=== PATIENT | male | born 1950 | race Caucasian/White ===

== ENCOUNTER → 2017-12-29 08:28 | Outpatient (CLI) | payer MEDICARE, SELFPAY ==
[2017-12-29 09:00] LABS: Add Manual Diff / Slide Review NO; Basophils Percent Auto 0.2 % (0-2); Eosinophils Percent Auto 1.9 % (2-4); Hematocrit 43.1 % (41-53); Lymphocytes Percent Auto 29.2 % (25-40); Mean Corpuscular HGB Conc 34.7 % (30-36); Monocytes Percent Auto 7.2 % (3-14); Neutrophils Absolute Auto 3900 /uL (3000-5900); Neutrophils Percent Auto 61.5 % (50-75); Platelet Count 179 X10^3/uL (150-400); Red Blood Cell Count 4.54 X10^6/uL (4.5-5.9); Red Cell Distribution Width 13.3 % (11.6-14.8); White Blood Cell Count 6.3 X10^3/uL (4.5-11.0)
[2017-12-29 09:31] LABS: Alanine Aminotransferase 26 IU/L (21-72); Albumin 4.2 g/dL (3.5-5.0); Albumin Globulin Ratio 1.8 (1.0-2.8); Alkaline Phosphatase 60 U/L (38-126); Aspartate Aminotransferase 20 IU/L (17-59); BUN Creatinine Ratio 19.1 (6-22); Bilirubin Total 0.5 mg/dL (0.2-1.3); Blood Urea Nitrogen 21 mg/dL (9-20); Calcium 9.4 mg/dL (8.4-10.2); Carbon Dioxide 30 mmol/L (22-32); Chloride 100 mmol/L (98-107); Cholesterol 178 mg/dL (140-199); Estimated Glomerular Filt Rate > 60.0 mL/min (>60); Globulin 2.3 g/dL (1.7-4.1); Glucose 115 mg/dL (80-110); HDL Cholesterol 52 mg/dL (40-60); HEMOLYSIS < 15 (0-50); LDL Cholesterol Calculated 76 mg/dL (<100); Potassium 4.2 mmol/L (3.4-5.1); Sodium 140 mmol/L (137-145); Total Protein 6.5 g/dL (6.3-8.2); Triglycerides 249 mg/dL (35-150)
[2017-12-29 10:01] LABS: Prostate Specific Antigen 0.642 ng/mL (0.10-4.00)
== END ==
PROVIDERS: PCP Family Medicine; Visit Provider Family Medicine
DX: I10 Essential (primary) hypertension (principal); E78.1 Pure hyperglyceridemia; Z12.5 Encounter for screening for malignant neoplasm of prostate
CPT/HCPCS: 36415; 80053; 80061; 84153; 85025

== ENCOUNTER → 2018-03-12 09:09 | Outpatient (CLI) | payer MEDICARE, SELFPAY ==
--- NOTE | 2018-03-12 09:10 | DI.US.S_ITS ---
PROCEDURE: US SCROTUM INDICATIONS: HYDROCELE TECHNIQUE: Real-time scanning was performed of the scrotum and testicles, with image documentation. Color and pulse Doppler interrogation was performed of both testicles. COMPARISON: [facility] [place], [place], KIDNEY/ URETER/BLADDER, 12/26/2011, 11:58. FINDINGS: Right: Testicle is normal in size at 4.9 x 2.8 x 3.7 cm, and homogenous in echotexture. Epididymis is normal in overall size and morphology. No varicoceles. There is a septated right-sided scrotal fluid collection that measures approximately 6 x 12.6 x 0.1 cm. Overlying scrotal skin is normal in thickness. Left: Testicle is normal in size at 4.3 x 3.4 x 3.3 cm, and homogeneous in echotexture. The left epididymis is not well-seen. There is a left-sided septated scrotal fluid collection seen that measures 6.3 x 3 x 2.8 cm No varicoceles. Overlying scrotal skin is normal in thickness. Doppler: Color and pulse Doppler demonstrate normal and symmetric arterial flow in both testicles. IMPRESSION: Bilateral large septated scrotal fluid collections are seen, which may represent spermatoceles or large septated hydroceles. On the CT from 2011, scrotal fluid collections can be seen. Dictated by: Joey Álvarez M.D. on 03/12/2018 at 9:11 Approved by: Joey Álvarez M.D. on 03/12/2018 at 9:18
== END ==
PROVIDERS: PCP Family Medicine; Visit Provider Family Medicine
DX: Z12.5 Encounter for screening for malignant neoplasm of prostate (principal); N43.3 Hydrocele, unspecified
CPT/HCPCS: 76870

== ENCOUNTER → 2019-01-06 08:37 | Outpatient (CLI) | payer MEDICARE, SELFPAY ==
[2019-01-06 09:21] LABS: Add Manual Diff / Slide Review NO; Basophils Absolute Auto 0 /uL (0-100); Basophils Percent Auto 0.4 % (0-2); Eosinophils Absolute Auto 200 /uL (0-450); Eosinophils Percent Auto 3.2 % (2-4); Hematocrit 44.5 % (41-53); Hemoglobin 15.4 g/dL (13.5-17.5); Lymphocytes Absolute Auto 1500 /uL (1100-4500); Lymphocytes Percent Auto 26.6 % (25-40); Mean Corpuscular HGB Conc 34.7 % (30-36); Mean Corpuscular Hemoglobin 33.3 PG (26-34); Mean Corpuscular Volume 95.8 fL (80-100); Monocytes Absolute Auto 400 /uL (0-900); Monocytes Percent Auto 7.8 % (3-14); Neutrophils Absolute Auto 3500 /uL (1500-7000); Platelet Count 198 X10^3/uL (150-400); Red Blood Cell Count 4.64 X10^6/uL (4.5-5.9); Red Cell Distribution Width 13.5 % (11.6-14.8); White Blood Cell Count 5.7 X10^3/uL (4.5-11.0)
[2019-01-06 09:36] LABS: Alanine Aminotransferase 21 IU/L (21-72); Albumin 4.6 g/dL (3.5-5.0); Albumin Globulin Ratio 1.9 (1.0-2.8); Alkaline Phosphatase 91 U/L (38-126); Aspartate Aminotransferase 24 IU/L (17-59); BUN Creatinine Ratio 25.7 (6-22); Bilirubin Total 0.4 mg/dL (0.2-1.3); Blood Urea Nitrogen 18 mg/dL (9-20); Calcium 9.7 mg/dL (8.4-10.2); Carbon Dioxide 27 mmol/L (22-32); Chloride 100 mmol/L (98-107); Cholesterol 192 mg/dL (140-199); Estimated Glomerular Filt Rate > 60.0 mL/min (>60); Globulin 2.4 g/dL (1.7-4.1); Glucose 135 mg/dL (80-110); HDL Cholesterol 57 mg/dL (40-60); HEMOLYSIS < 15 (0-50); LDL Cholesterol Calculated 65 mg/dL (<100); Potassium 4.3 mmol/L (3.4-5.1); Sodium 138 mmol/L (137-145); Triglycerides 351 mg/dL (35-150)
[2019-01-06 10:03] LABS: Prostate Specific Antigen Scrn 1.38 ng/mL (0.1-4.0)
== END ==
PROVIDERS: PCP Family Medicine; Visit Provider Family Medicine
DX: Z12.5 Encounter for screening for malignant neoplasm of prostate (principal); Z79.899 Other long term (current) drug therapy; E78.1 Pure hyperglyceridemia
CPT/HCPCS: 36415; 80053; 80061; 85025; G0103

== ENCOUNTER → 2019-05-10 11:43 | Outpatient (CLI) | payer MEDICARE, SELFPAY ==
[2019-05-10 12:28] LABS: Add Manual Diff / Slide Review NO; Basophils Absolute Auto 0 /uL (0-100); Basophils Percent Auto 0.2 % (0-2); Eosinophils Absolute Auto 100 /uL (0-450); Eosinophils Percent Auto 0.8 % (2-4); Hematocrit 44.4 % (41-53); Hemoglobin 15.4 g/dL (13.5-17.5); Lymphocytes Absolute Auto 1500 /uL (1100-4500); Mean Corpuscular HGB Conc 34.6 % (30-36); Mean Corpuscular Hemoglobin 33.5 PG (26-34); Mean Corpuscular Volume 96.9 fL (80-100); Monocytes Absolute Auto 500 /uL (0-900); Monocytes Percent Auto 4.5 % (3-14); Neutrophils Absolute Auto 9300 /uL (1500-7000); Neutrophils Percent Auto 81.5 % (50-75); Platelet Count 190 X10^3/uL (150-400); Red Blood Cell Count 4.59 X10^6/uL (4.5-5.9); Red Cell Distribution Width 13.5 % (11.6-14.8); White Blood Cell Count 11.5 X10^3/uL (4.5-11.0)
[2019-05-10 12:37] LABS: Alanine Aminotransferase 18 IU/L (<50); Albumin 4.5 g/dL (3.5-5.0); Albumin Globulin Ratio 1.7 (1.0-2.8); Alkaline Phosphatase 85 U/L (38-126); Aspartate Aminotransferase 34 IU/L (17-59); BUN Creatinine Ratio 31.4 (6-22); Bilirubin Total 0.6 mg/dL (0.2-1.3); Blood Urea Nitrogen 22 mg/dL (9-20); Calcium 9.5 mg/dL (8.4-10.2); Carbon Dioxide 30 mmol/L (22-32); Chloride 101 mmol/L (98-107); Estimated Glomerular Filt Rate > 60.0 mL/min (>60); Globulin 2.6 g/dL (1.7-4.1); Glucose 123 mg/dL (80-110); HEMOLYSIS 19 (0-50); Lipase 398 U/L (23-300); Potassium 4.9 mmol/L (3.4-5.1); Sodium 137 mmol/L (137-145); Total Protein 7.1 g/dL (6.3-8.2)
== END ==
PROVIDERS: Family Provider Family Medicine; PCP Family Medicine; Visit Provider Nurse Practitioner
DX: R10.11 Right upper quadrant pain (principal)
CPT/HCPCS: 36415; 80053; 83690; 85025

== ENCOUNTER → 2019-05-11 09:24 | Outpatient (CLI) | payer MEDICARE, SELFPAY ==
--- NOTE | 2019-05-11 09:29 | DI.US.S_ITS ---
PROCEDURE: US ABDOMEN COMPLETE INDICATIONS: RIGHT UPPER QUADRANT PAIN TECHNIQUE: Real-time scanning was performed of the abdominal and retroperitoneal organs, with image documentation. COMPARISON: None. FINDINGS: Liver: Liver is normal in size and homogeneous in echotexture, moderately fatty infiltrated. Gallbladder: Appears normal Biliary ducts: Intrahepatic bile ducts are non-dilated. Extrahepatic bile duct caliber measures 8.0 mm. Normal is 6-7 mm or less in diameter, or 10 mm or less post-cholecystectomy. Pancreas: Visualized portions of the pancreas are sonographically normal. Spleen: Spleen is normal in size and homogeneous in echotexture. Kidneys: Kidneys are normal in size and echotexture. Right kidney measures 13.8 cm long; left kidney measures 13.1 cm long. No hydronephrosis or nephrolithiasis. No solid masses. Aorta: Visualized aorta is normal in caliber at less than 3 cm. Iliacs: Proximal common iliac arteries are normal in caliber at less than 2.5 cm. IVC: Intrahepatic inferior vena cava is patent. Miscellaneous: No free abdominal fluid. IMPRESSION: No acute disease, source of current right upper quadrant pain is not identified. Incidental note is made of moderate fatty infiltration within the liver which conceivably could represent a source of tenderness. No gallstones or biliary distention found. Dictated by: Glenroy Gallardo M.D. on 05/11/2019 at 11:30 Approved by: Glenroy Gallardo M.D. on 05/11/2019 at 11:31
== END ==
PROVIDERS: Family Provider Family Medicine; PCP Family Medicine; Visit Provider Nurse Practitioner
DX: R10.11 Right upper quadrant pain (principal)
CPT/HCPCS: 76700

== ENCOUNTER 2020-05-11 13:24 | Inpatient (IN) | payer MEDICARE, OTHER, SELFPAY ==
[2020-05-11] VITALS (29 sets, daily range): BP systolic 140–217; BP diastolic 72–116; PULSE 57–93; RESP 16–24; TEMP 36.4–36.7; O2SAT 91–99; BMI 24.3
--- NOTE | 2020-05-11 13:52 | ED.ABDPAIN ---
HPI - Abdominal Pain <PIYUSH Edmondsno - Last Filed: 05/11/20 18:07> General Chief Complaint: Abdominal Pain Stated Complaint: sharp pain in tummy shakey Time Seen by Provider: 05/11/20 13:40 Source: patient Mode of arrival: Ambulatory Limitations: no limitations History of Present Illness HPI narrative: The patient is a 69-year-old male current smoker with history of hypertension and pancreatitis who presents with a chief complaint of epigastric pain. He notes that he has a history of pancreatitis for which he was in an ?induced coma in [place] about 30 years ago. He states that they did not know why he developed pancreatitis. He states that he has transient epigastric pain right upper quadrant pain, this occurred about the same time last year. He states he initially cut out all alcohol after his pancreatitis flare, but is currently drinking about 5 oz of vodka daily. He denies any fevers, complains of transient muscle aches and chills. Denies any known coronavirus exposure was tested last week for his work negative. He denies any abdominal surgical history. Related Data Previous Rx's Medication Instructions Recorded gemfibrozil 600 mg tablet 600 mg PO BIDAC #60 tab 12/12/17 oxycodone 5 mg tablet 5 mg PO TID PRN #90 tab 02/11/18 carisoprodol 350 mg tablet 350 mg PO BID PRN #60 tab 02/12/18 oxycodone 5 mg tablet 5 mg PO TID PRN #90 tab 02/12/18 oxycodone 5 mg tablet 5 mg PO TID PRN #90 tab 02/12/18 atenolol 100 mg tablet 100 mg PO Q DAY #90 tab 08/14/18 Allergies Allergy/AdvReac Type Severity Reaction Status Date / Time No Known Drug Allergies Allergy Verified 05/11/20 13:43 Review of Systems <PIYUSH Edmondson - Last Filed: 05/11/20 18:07> Review of Systems Narrative: GENERAL: Denies chills, fatigue, malaise, fever, sweats. HEENT: Denies sinus pain, ear pain, sore throat, difficulty swallowing, dizziness. RESPIRATORY: Denies dyspnea, cough, wheezing, hemoptysis, sputum. CARDIOVASCULAR: Denies chest pain, palpitations, orthopnea, edema, GASTROINTESTINAL: Denies nausea, vomiting, abdominal pain, diarrhea, constipation, melena. : Denies dysuria, frequency, incontinence, hematuria, urinary retention. MUSCULOSKELETAL: denies weakness, joint pain, or bony pain SKIN: Denies rash, skin lesions, or other NEUROLOGIC: Denies weakness, headache, numbness, change in speech, confusion, seizures, incoordination. PSYCHIATRIC: No concerning psychosocial issues. 12 point review of systems is negative except for those stated above Patient History <PIYUSH Edmondson - Last Filed: 05/11/20 18:07> Medical History (Updated 05/11/20 @ 17:26 by PIYUSH Edmondson) Chronic back pain Chronic low back pain (Unknown) Essential hypertension (04/07/15) Hydrocele of testis (Unknown) Hyperlipemia (Unknown) Hypertension (Unknown) Kidney stones (Unknown) Left knee pain Pancreatitis (1990) Peripheral artery disease (Unknown) Pure hyperglyceridemia (04/07/15) Uncomplicated opioid dependence Uncomplicated opioid dependence (05/22/17) Surgical History History of lithotripsy Hx of tonsillectomy (Unknown) Family History (Updated 05/11/20 @ 18:18 by Rafael Bryant DO) Father Hyperlipidemia Social History Smoking Status: Current every day smoker Tobacco: How many years used: 30 second hand exposure: No alcohol intake: current (wine with dinner, but not every day.) substance use type: does not use Smoking Status: Current every day smoker alcohol intake frequency: 0-2 drinks per day Exam <PIYUSH Edmondson - Last Filed: 05/11/20 18:07> Narrative Exam Narrative: GENERAL: This is a well-nourished, well-developed patient, in no acute distress HEAD: Atraumatic. Normocephalic. No temporal or scalp tenderness. EYES: Pupils equal round and reactive. Extraocular motions intact. No scleral icterus. No injection or drainage. ENT: Nose without bleeding, purulent drainage or septal hematoma. Throat without erythema, tonsillar hypertrophy or exudate. Uvula midline. Airway patent. NECK: Trachea midline. No JVD or lymphadenopathy. Supple, nontender, no meningeal signs. CARDIOVASCULAR: Regular rate and rhythm RESPIRATORY: Clear to auscultation. Breath sounds equal bilaterally. No wheezes, rales, or rhonchi. No cough. No increased respiratory effort. No accessory muscle use GASTROINTESTINAL: Abdomen soft, active bowel sounds all 4 quadrants, pain to palpation epigastric area, nondistended. No hepato-splenomegaly, or palpable masses. EXTREMITIES: No clubbing, cyanosis, or edema. No joint tenderness, effusion, or edema noted. BACK: Nontender without deformity or crepitance. No flank tenderness. NEURO: AOx3. SKIN: No rash or erythema on visible skin Initial Vital Signs Initial Vital Signs: Vital Signs Temperature 97.8 F 05/11/20 13:44 Pulse Rate 74 05/11/20 13:44 Respiratory Rate 18 05/11/20 13:44 Pulse Oximetry 99 05/11/20 13:44 <Anthony Durham DO - Last Filed: 05/11/20 18:26> Initial Vital Signs Initial Vital Signs: Vital Signs Temperature 97.8 F 05/11/20 13:44 Pulse Rate 74 05/11/20 13:44 Respiratory Rate 18 05/11/20 13:44 Pulse Oximetry 99 05/11/20 13:44 Scores <AMY Edmondson - Last Filed: 05/11/20 18:07> GCS Zoe coma scale eye opening: Spontaneous Zoe coma scale verbal response: Orientated Zoe coma scale motor response: Obey commands Zoe coma scale total score: 15 Course <AMY EdmondsonBC - Last Filed: 05/11/20 18:07> Orders Ordered: ED Orders 05/11/20 13:50 EKG-12 Lead Stat 05/11/20 14:02 Amylase Stat Complete Blood Count AUTO DIFF Stat Comprehensive Metabolic Panel Stat Lipase Stat Partial Thromboplastin Time Stat Prothrombin Time INR Stat Triglycerides Stat Troponin & CK Cardiac Panel Stat 05/11/20 14:37 CT abdomen pelvis w con Stat 05/11/20 16:07 Urine Microscopic Stat 05/11/20 16:14 COVID19 Stat 05/12/20 05:00 Basic Metabolic Panel DAILY Complete Blood Count AUTO DIFF DAILY Hemoglobin A1C% w Est Avg Glu Routine Hepatic (Liver) Panel DAILY Lipid Panel Routine Magnesium DAILY Phosphorous DAILY 05/13/20 05:00 Basic Metabolic Panel DAILY Complete Blood Count AUTO DIFF DAILY Hepatic (Liver) Panel DAILY Magnesium DAILY Phosphorous DAILY 05/14/20 05:00 Basic Metabolic Panel DAILY Complete Blood Count AUTO DIFF DAILY Hepatic (Liver) Panel DAILY Magnesium DAILY Phosphorous DAILY Hydromorphone HCl (Hydromorphone 1 Mg Inj) 1 mg IV Q3H PRN PRN Reason: Pain, Moderate (4-6) INSULIN DRIP PREMIX (Myxredlin Drip Premix) 100 unit in 100 mls @ 8.57 mls/hr IV TITRATE BERHANE; Protocol Dextrose (D10w) 1,000 mls @ 100 mls/hr IV CONT BERHANE Discontinued Medications Atenolol (Atenolol 50 Mg Tablet) 100 mg PO NOW ONE Stop: 05/11/20 15:56 Last Admin: 05/11/20 16:05 Dose: 100 mg Documented by: MANFRED Hydromorphone HCl (Hydromorphone 1 Mg Inj) 1 mg IV NOW ONE Stop: 05/11/20 14:38 Last Admin: 05/11/20 14:46 Dose: 1 mg Documented by: MANFRED Hydromorphone HCl (Hydromorphone 1 Mg Inj) 1 mg IV NOW ONE Stop: 05/11/20 16:19 Last Admin: 05/11/20 16:23 Dose: 1 mg Documented by: MANFRED Sodium Chloride (Normal Saline 0.9%) 1,000 mls @ 1,000 mls/hr IV BOLUS ONE Stop: 05/11/20 14:49 Last Infusion: 05/11/20 15:21 Dose: 0 mls/hr Documented by: Admin: 05/11/20 14:01 Dose: 1,000 mls/hr Documented by: RONY Sodium Chloride (Normal Saline 0.9%) 1,000 mls @ 1,000 mls/hr IV BOLUS ONE Stop: 05/11/20 15:47 Last Infusion: 05/11/20 16:56 Dose: 0 mls/hr Documented by: Admin: 05/11/20 15:22 Dose: 1,000 mls/hr Documented by: MANFRED Morphine Sulfate (Morphine 4 Mg/Ml Inj) 4 mg IV NOW ONE Stop: 05/11/20 13:51 Last Admin: 05/11/20 14:02 Dose: 4 mg Documented by: RONY Ondansetron HCl (Ondansetron 4 Mg/2 Ml Inj) 4 mg IV NOW ONE Stop: 05/11/20 13:51 Last Admin: 05/11/20 14:02 Dose: 4 mg Documented by: SCANAPO Vital Signs Vital signs: Vital Signs - 8 hr 05/11/20 13:44 05/11/20 14:16 05/11/20 14:30 Temperature 97.8 F Pulse Rate 74 82 83 Respiratory Rate 18 Blood Pressure Pulse Oximetry 99 97 97 05/11/20 14:31 05/11/20 15:00 05/11/20 15:01 Temperature Pulse Rate 77 84 91 H Respiratory Rate Blood Pressure 212/105 H 200/94 H Pulse Oximetry 97 96 96 05/11/20 15:19 05/11/20 15:29 05/11/20 15:30 Temperature Pulse Rate 87 86 84 Respiratory Rate Blood Pressure 214/116 H 207/100 H 214/98 H Pulse Oximetry 98 97 98 05/11/20 15:45 05/11/20 16:14 05/11/20 16:29 Temperature Pulse Rate 93 H Respiratory Rate Blood Pressure 217/94 H 191/101 H Pulse Oximetry 97 05/11/20 16:30 05/11/20 16:52 05/11/20 17:01 Temperature Pulse Rate Respiratory Rate Blood Pressure 190/89 H 188/81 H 171/75 H Pulse Oximetry <Anthony Durham, - Last Filed: 05/11/20 18:26> Orders Ordered: ED Orders 05/11/20 13:50 EKG-12 Lead Stat 05/11/20 14:02 Amylase Stat Complete Blood Count AUTO DIFF Stat Comprehensive Metabolic Panel Stat Lipase Stat Partial Thromboplastin Time Stat Prothrombin Time INR Stat Triglycerides Stat Troponin & CK Cardiac Panel Stat 05/11/20 14:37 CT abdomen pelvis w con Stat 05/11/20 16:07 Urine Microscopic Stat 05/11/20 16:14 COVID19 Stat 05/12/20 05:00 Basic Metabolic Panel DAILY Complete Blood Count AUTO DIFF DAILY Hemoglobin A1C% w Est Avg Glu Routine Hepatic (Liver) Panel DAILY Lipid Panel Routine Magnesium DAILY Phosphorous DAILY 05/13/20 05:00 Basic Metabolic Panel DAILY Complete Blood Count AUTO DIFF DAILY Hepatic (Liver) Panel DAILY Magnesium DAILY Phosphorous DAILY 05/14/20 05:00 Basic Metabolic Panel DAILY Complete Blood Count AUTO DIFF DAILY Hepatic (Liver) Panel DAILY Magnesium DAILY Phosphorous DAILY Hydromorphone HCl (Hydromorphone 1 Mg Inj) 1 mg IV Q3H PRN PRN Reason: Pain, Moderate (4-6) INSULIN DRIP PREMIX (Myxredlin Drip Premix) 100 unit in 100 mls @ 8.57 mls/hr IV TITRATE BERHANE; Protocol Dextrose (D10w) 1,000 mls @ 100 mls/hr IV CONT BERHANE Discontinued Medications Atenolol (Atenolol 50 Mg Tablet) 100 mg PO NOW ONE Stop: 05/11/20 15:56 Last Admin: 05/11/20 16:05 Dose: 100 mg Documented by: MANFRED Hydromorphone HCl (Hydromorphone 1 Mg Inj) 1 mg IV NOW ONE Stop: 05/11/20 14:38 Last Admin: 05/11/20 14:46 Dose: 1 mg Documented by: MANFRED Hydromorphone HCl (Hydromorphone 1 Mg Inj) 1 mg IV NOW ONE Stop: 05/11/20 16:19 Last Admin: 05/11/20 16:23 Dose: 1 mg Documented by: MANFRED Sodium Chloride (Normal Saline 0.9%) 1,000 mls @ 1,000 mls/hr IV BOLUS ONE Stop: 05/11/20 14:49 Last Infusion: 05/11/20 15:21 Dose: 0 mls/hr Documented by: Admin: 05/11/20 14:01 Dose: 1,000 mls/hr Documented by: RONY Sodium Chloride (Normal Saline 0.9%) 1,000 mls @ 1,000 mls/hr IV BOLUS ONE Stop: 05/11/20 15:47 Last Infusion: 05/11/20 16:56 Dose: 0 mls/hr Documented by: Admin: 05/11/20 15:22 Dose: 1,000 mls/hr Documented by: MANFRED Morphine Sulfate (Morphine 4 Mg/Ml Inj) 4 mg IV NOW ONE Stop: 05/11/20 13:51 Last Admin: 05/11/20 14:02 Dose: 4 mg Documented by: ROYN Ondansetron HCl (Ondansetron 4 Mg/2 Ml Inj) 4 mg IV NOW ONE Stop: 05/11/20 13:51 Last Admin: 05/11/20 14:02 Dose: 4 mg Documented by: SCANAPO Vital Signs Vital signs: Vital Signs - 8 hr 05/11/20 13:44 05/11/20 14:16 05/11/20 14:30 Temperature 97.8 F Pulse Rate 74 82 83 Respiratory Rate 18 Blood Pressure Pulse Oximetry 99 97 97 05/11/20 14:31 05/11/20 15:00 05/11/20 15:01 Temperature Pulse Rate 77 84 91 H Respiratory Rate Blood Pressure 212/105 H 200/94 H Pulse Oximetry 97 96 96 05/11/20 15:19 05/11/20 15:29 05/11/20 15:30 Temperature Pulse Rate 87 86 84 Respiratory Rate Blood Pressure 214/116 H 207/100 H 214/98 H Pulse Oximetry 98 97 98 05/11/20 15:45 05/11/20 16:14 05/11/20 16:29 Temperature Pulse Rate 93 H Respiratory Rate Blood Pressure 217/94 H 191/101 H Pulse Oximetry 97 05/11/20 16:30 05/11/20 16:52 05/11/20 17:01 Temperature Pulse Rate Respiratory Rate Blood Pressure 190/89 H 188/81 H 171/75 H Pulse Oximetry MDM - Abdominal Pain <MARK Edmondson- - Last Filed: 05/11/20 18:07> Differential Diagnosis Differential diagnosis: Likely abdominal pain, constipation, diverticulitis, gastroenteritis, pancreatitis and small bowel obstruction Lab Data Attestation: I reviewed the patient's lab results. Result diagrams: 05/11/20 14:02 05/11/20 14:02 Labs: Lab Results 05/11/20 05/11/20 05/11/20 Range/Units 14:02 14:02 14:02 WBC 9.6 (4.5-11.0) X10^3/uL RBC 4.78 (4.5-5.9) X10^6/uL Hgb 15.8 (13.5-17.5) g/dL Hct 45.9 (41-53) % MCV 96.0 (80-100) fL MCH 33.0 (26-34) PG MCHC 34.4 (30-36) % RDW 13.4 (11.6-14.8) % Plt Count 151 (150-400) X10^3/uL Neut % (Auto) 79.2 H (50-75) % Lymph % (Auto) 14.7 L (25-40) % [place] % (Auto) 4.6 (3-14) % Eos % (Auto) 1.3 L (2-4) % Baso % (Auto) 0.2 (0-2) % Neut # (Auto) 7600 H (0809-8422) /uL Lymph # (Auto) 1400 (8293-4365) /uL [place] # (Auto) 400 (0-900) /uL Eos # (Auto) 100 (0-450) /uL Baso # (Auto) 0 (0-100) /uL PT 10.9 (10.1-12.7) SECONDS INR 0.9 (0.9-1.3) APTT 31 (26.4-36.2) SECONDS Sodium 134 L (137-145) mmol/L Potassium 4.0 (3.4-5.1) mmol/L Chloride 104 (98-107) mmol/L Carbon Dioxide 25 (22-32) mmol/L BUN 16 (9-20) mg/dL Creatinine 0.53 L (0.66-1.25) mg/dL Estimated GFR > 60.0 (>60) mL/min BUN/Creatinine Ratio 30.2 H (6-22) Glucose 231 H (80-110) mg/dL Calcium 9.2 (8.4-10.2) mg/dL Total Bilirubin 0.5 (0.2-1.3) mg/dL AST 55 (17-59) IU/L ALT 26 (<50) IU/L Alkaline Phosphatase 113 (38-126) U/L Total Creatine Kinase (55-170) U/L CK-MB (CK-2) CK-MB (CK-2) Rel Index Troponin I (0.01-0.034) ng/mL Total Protein 6.9 (6.3-8.2) g/dL Albumin 4.1 (3.5-5.0) g/dL Globulin 2.8 (1.7-4.1) g/dL Albumin/Globulin Ratio 1.5 (1.0-2.8) Triglycerides (35-150) mg/dL Amylase 176 H (30-110) U/L Lipase 1866 H (23-300) U/L Urine RBC (0-5/HPF) Urine WBC (0-5/HPF) Ur Squamous Epith Cells (0-5/HPF) Urine Bacteria (None) Ur Culture Indicated? COVID-19 PCR (Negative) 05/11/20 05/11/20 05/11/20 Range/Units 14:02 14:02 16:07 WBC (4.5-11.0) X10^3/uL RBC (4.5-5.9) X10^6/uL Hgb (13.5-17.5) g/dL Hct (41-53) % MCV (80-100) fL MCH (26-34) PG MCHC (30-36) % RDW (11.6-14.8) % Plt Count (150-400) X10^3/uL Neut % (Auto) (50-75) % Lymph % (Auto) (25-40) % [place] % (Auto) (3-14) % Eos % (Auto) (2-4) % Baso % (Auto) (0-2) % Neut # (Auto) (4520-8384) /uL Lymph # (Auto) (5266-7489) /uL [place] # (Auto) (0-900) /uL Eos # (Auto) (0-450) /uL Baso # (Auto) (0-100) /uL PT (10.1-12.7) SECONDS INR (0.9-1.3) APTT (26.4-36.2) SECONDS Sodium (137-145) mmol/L Potassium (3.4-5.1) mmol/L Chloride (98-107) mmol/L Carbon Dioxide (22-32) mmol/L BUN (9-20) mg/dL Creatinine (0.66-1.25) mg/dL Estimated GFR (>60) mL/min BUN/Creatinine Ratio (6-22) Glucose (80-110) mg/dL Calcium (8.4-10.2) mg/dL Total Bilirubin (0.2-1.3) mg/dL AST (17-59) IU/L ALT (<50) IU/L Alkaline Phosphatase (38-126) U/L Total Creatine Kinase 32 L (55-170) U/L CK-MB (CK-2) TNP CK-MB (CK-2) Rel Index TNP Troponin I < 0.012 (0.01-0.034) ng/mL Total Protein (6.3-8.2) g/dL Albumin (3.5-5.0) g/dL Globulin (1.7-4.1) g/dL Albumin/Globulin Ratio (1.0-2.8) Triglycerides 1109 H (35-150) mg/dL Amylase (30-110) U/L Lipase (23-300) U/L Urine RBC 0-1/hpf (0-5/HPF) Urine WBC None seen (0-5/HPF) Ur Squamous Epith Cells None seen (0-5/HPF) Urine Bacteria None seen (None) Ur Culture Indicated? Cult not indicated COVID-19 PCR (Negative) 05/11/20 Range/Units 16:14 WBC (4.5-11.0) X10^3/uL RBC (4.5-5.9) X10^6/uL Hgb (13.5-17.5) g/dL Hct (41-53) % MCV (80-100) fL MCH (26-34) PG MCHC (30-36) % RDW (11.6-14.8) % Plt Count (150-400) X10^3/uL Neut % (Auto) (50-75) % Lymph % (Auto) (25-40) % [place] % (Auto) (3-14) % Eos % (Auto) (2-4) % Baso % (Auto) (0-2) % Neut # (Auto) (4911-8356) /uL Lymph # (Auto) (7015-8414) /uL [place] # (Auto) (0-900) /uL Eos # (Auto) (0-450) /uL Baso # (Auto) (0-100) /uL PT (10.1-12.7) SECONDS INR (0.9-1.3) APTT (26.4-36.2) SECONDS Sodium (137-145) mmol/L Potassium (3.4-5.1) mmol/L Chloride (98-107) mmol/L Carbon Dioxide (22-32) mmol/L BUN (9-20) mg/dL Creatinine (0.66-1.25) mg/dL Estimated GFR (>60) mL/min BUN/Creatinine Ratio (6-22) Glucose (80-110) mg/dL Calcium (8.4-10.2) mg/dL Total Bilirubin (0.2-1.3) mg/dL AST (17-59) IU/L ALT (<50) IU/L Alkaline Phosphatase (38-126) U/L Total Creatine Kinase (55-170) U/L CK-MB (CK-2) CK-MB (CK-2) Rel Index Troponin I (0.01-0.034) ng/mL Total Protein (6.3-8.2) g/dL Albumin (3.5-5.0) g/dL Globulin (1.7-4.1) g/dL Albumin/Globulin Ratio (1.0-2.8) Triglycerides (35-150) mg/dL Amylase (30-110) U/L Lipase (23-300) U/L Urine RBC (0-5/HPF) Urine WBC (0-5/HPF) Ur Squamous Epith Cells (0-5/HPF) Urine Bacteria (None) Ur Culture Indicated? COVID-19 PCR Negative (Negative) Point of care testing: Point of Care Testing Glucose POC 153 Urine Dip Bedside Urine Glucose Negative Bedside Urine Bilirubin - Negative Bedside Urine Ketone - Negative Urine Specific [place] 1.015 Bedside Urine Occult Blood + Bedside Urine pH 6.0 Bedside Urine Protein - Negative Bedside Urine Urobilinogen - Negative Bedside Urine Nitrite - Negative Bedside Urine Leukocytes - Negative Esterase Imaging Data CT scan - abdomen/pelvis: Radiologist's Impression: [facility] [place] [id number] Scan ReportSigned Patient: Ez Williamson#: [id number]: 9Acct:[id number]/Sex: 69 / MDate of Service: 05/11/20Loc: EDAccession Number: [id number] Procedure: CT abdomen pelvis w con Ordering Provider: Dayanna Arriaga- PROCEDURE: CT ABDOMEN PELVIS W CON INDICATIONS: abd pain, elevated lipase TECHNIQUE: After the administration of intravenous contrast, 5 mm thick sections acquired from the diaphragm to the symphysis. 5 mm coronal and sagittal reformats were acquired. For radiation dose reduction, the following was used: automated exposure control, adjustment of mA and/or kV according to patient size. COMPARISON: [facility], CT, KIDNEY/ URETER/BLADDER, 12/26/2011, 11:58. [facility], , US ABDOMEN COMPLETE, 05/11/2019, 10:03. FINDINGS: Image quality: Excellent. ABDOMEN: Lung bases: Lung bases are clear. Heart size is normal. Solid organs: Liver is normal in size and enhancement. Diffuse fatty liver infiltration is noted. Gallbladder wall is not thickened. Biliary system is non dilated. There is moderate inflammatory change seen surrounding the pancreas. The pancreatic duct is mildly dilated, measuring up to 5 mm. The pancreas enhances normally, without necrotic areas. No pancreatic pseudocysts are seen. Spleen is normal in size and enhancement. No adrenal nodules. Kidneys demonstrate normal size and enhancement, without hydronephrosis. The previously seen right-sided kidney stone is no longer seen. Peritoneum and bowel: Bowel loops demonstrate normal wall thickness and caliber. No free fluid or air. Nodes and vessels: No retroperitoneal or mesenteric adenopathy by size criteria. Aorta and inferior vena cava are normal in size. Advanced atherosclerotic calcification can be seen in the aorta, the iliac arteries, and the proximal aortic branches. Miscellaneous: No ventral hernias. PELVIS: Genitourinary: Bladder wall thickness is normal. There is a prominent right-sided hydrocele. Miscellaneous: No inguinal hernias or adenopathy. Bones: No suspicious bony lesions. A right iliac wing bone island can be seen, as on series 2, image 61 No vertebral body compression fractures. Mild levoconvex scoliotic curvature is noted. Age-appropriate bony degenerative changes are seen. IMPRESSION: Pancreatitis, without pancreatic necrosis or pseudocyst formation. The pancreatic duct is mildly dilated at 5 mm. No subhash biliary dilatation can be seen. Incidental note is made of: Fatty liver infiltration Advanced atherosclerotic calcification Levoconvex scoliotic curvature Stable right iliac wing bone island Prominent right-sided hydrocele Dictated by: Joey Álvarez M.D. on 05/11/2020 at 14:21 Approved by: Joey Álvarez M.D. on 05/11/2020 at 14:26 ECG Data Attestation: I personally reviewed and interpreted this ECG as follows: Interpretation: Sinus rhythm. Ventricular rate 73. P.r. interval 150. QRS 90. MDM Narrative Medical decision making narrative: The patient is a 69-year-old male with history of pancreatitis who presents with a chief complaint of abdominal pain that has been ongoing since yesterday. He does drink 5 oz of hard alcohol per day. His lipase is elevated at almost 1900, amylase elevated as well. CT was obtained which is pancreatitis with no gallbladder wall thickening or biliary distention. The patient does require multiple doses of IV pain medication, I spoke with Dr. Bryant who accepted the patient for admission for pancreatitis management. Per his request, triglyceride level was added to his labs which was found to be elevated. Subsequently he ordered insulin drip the patient the patient will be admitted to the intensive care unit at this facility. His coronavirus is negative, patient states understanding. He has been hemodynamically stable throughout his stay in the ER. <Anthony Durham, DO - Last Filed: 05/11/20 18:26> Lab Data Labs: Lab Results 05/11/20 05/11/20 05/11/20 Range/Units 14:02 14:02 14:02 WBC 9.6 (4.5-11.0) X10^3/uL RBC 4.78 (4.5-5.9) X10^6/uL Hgb 15.8 (13.5-17.5) g/dL Hct 45.9 (41-53) % MCV 96.0 (80-100) fL MCH 33.0 (26-34) PG MCHC 34.4 (30-36) % RDW 13.4 (11.6-14.8) % Plt Count 151 (150-400) X10^3/uL Neut % (Auto) 79.2 H (50-75) % Lymph % (Auto) 14.7 L (25-40) % [place] % (Auto) 4.6 (3-14) % Eos % (Auto) 1.3 L (2-4) % Baso % (Auto) 0.2 (0-2) % Neut # (Auto) 7600 H (1652-6170) /uL Lymph # (Auto) 1400 (6708-7857) /uL [place] # (Auto) 400 (0-900) /uL Eos # (Auto) 100 (0-450) /uL Baso # (Auto) 0 (0-100) /uL PT 10.9 (10.1-12.7) SECONDS INR 0.9 (0.9-1.3) APTT 31 (26.4-36.2) SECONDS Sodium 134 L (137-145) mmol/L Potassium 4.0 (3.4-5.1) mmol/L Chloride 104 (98-107) mmol/L Carbon Dioxide 25 (22-32) mmol/L BUN 16 (9-20) mg/dL Creatinine 0.53 L (0.66-1.25) mg/dL Estimated GFR > 60.0 (>60) mL/min BUN/Creatinine Ratio 30.2 H (6-22) Glucose 231 H (80-110) mg/dL Calcium 9.2 (8.4-10.2) mg/dL Total Bilirubin 0.5 (0.2-1.3) mg/dL AST 55 (17-59) IU/L ALT 26 (<50) IU/L Alkaline Phosphatase 113 (38-126) U/L Total Creatine Kinase (55-170) U/L CK-MB (CK-2) CK-MB (CK-2) Rel Index Troponin I (0.01-0.034) ng/mL Total Protein 6.9 (6.3-8.2) g/dL Albumin 4.1 (3.5-5.0) g/dL Globulin 2.8 (1.7-4.1) g/dL Albumin/Globulin Ratio 1.5 (1.0-2.8) Triglycerides (35-150) mg/dL Amylase 176 H (30-110) U/L Lipase 1866 H (23-300) U/L Urine RBC (0-5/HPF) Urine WBC (0-5/HPF) Ur Squamous Epith Cells (0-5/HPF) Urine Bacteria (None) Ur Culture Indicated? COVID-19 PCR (Negative) 05/11/20 05/11/20 05/11/20 Range/Units 14:02 14:02 16:07 WBC (4.5-11.0) X10^3/uL RBC (4.5-5.9) X10^6/uL Hgb (13.5-17.5) g/dL Hct (41-53) % MCV (80-100) fL MCH (26-34) PG MCHC (30-36) % RDW (11.6-14.8) % Plt Count (150-400) X10^3/uL Neut % (Auto) (50-75) % Lymph % (Auto) (25-40) % [place] % (Auto) (3-14) % Eos % (Auto) (2-4) % Baso % (Auto) (0-2) % Neut # (Auto) (6062-2876) /uL Lymph # (Auto) (5167-5712) /uL [place] # (Auto) (0-900) /uL Eos # (Auto) (0-450) /uL Baso # (Auto) (0-100) /uL PT (10.1-12.7) SECONDS INR (0.9-1.3) APTT (26.4-36.2) SECONDS Sodium (137-145) mmol/L Potassium (3.4-5.1) mmol/L Chloride (98-107) mmol/L Carbon Dioxide (22-32) mmol/L BUN (9-20) mg/dL Creatinine (0.66-1.25) mg/dL Estimated GFR (>60) mL/min BUN/Creatinine Ratio (6-22) Glucose (80-110) mg/dL Calcium (8.4-10.2) mg/dL Total Bilirubin (0.2-1.3) mg/dL AST (17-59) IU/L ALT (<50) IU/L Alkaline Phosphatase (38-126) U/L Total Creatine Kinase 32 L (55-170) U/L CK-MB (CK-2) TNP CK-MB (CK-2) Rel Index TNP Troponin I < 0.012 (0.01-0.034) ng/mL Total Protein (6.3-8.2) g/dL Albumin (3.5-5.0) g/dL Globulin (1.7-4.1) g/dL Albumin/Globulin Ratio (1.0-2.8) Triglycerides 1109 H (35-150) mg/dL Amylase (30-110) U/L Lipase (23-300) U/L Urine RBC 0-1/hpf (0-5/HPF) Urine WBC None seen (0-5/HPF) Ur Squamous Epith Cells None seen (0-5/HPF) Urine Bacteria None seen (None) Ur Culture Indicated? Cult not indicated COVID-19 PCR (Negative) 05/11/20 Range/Units 16:14 WBC (4.5-11.0) X10^3/uL RBC (4.5-5.9) X10^6/uL Hgb (13.5-17.5) g/dL Hct (41-53) % MCV (80-100) fL MCH (26-34) PG MCHC (30-36) % RDW (11.6-14.8) % Plt Count (150-400) X10^3/uL Neut % (Auto) (50-75) % Lymph % (Auto) (25-40) % [place] % (Auto) (3-14) % Eos % (Auto) (2-4) % Baso % (Auto) (0-2) % Neut # (Auto) (7373-9622) /uL Lymph # (Auto) (9512-2776) /uL [place] # (Auto) (0-900) /uL Eos # (Auto) (0-450) /uL Baso # (Auto) (0-100) /uL PT (10.1-12.7) SECONDS INR (0.9-1.3) APTT (26.4-36.2) SECONDS Sodium (137-145) mmol/L Potassium (3.4-5.1) mmol/L Chloride (98-107) mmol/L Carbon Dioxide (22-32) mmol/L BUN (9-20) mg/dL Creatinine (0.66-1.25) mg/dL Estimated GFR (>60) mL/min BUN/Creatinine Ratio (6-22) Glucose (80-110) mg/dL Calcium (8.4-10.2) mg/dL Total Bilirubin (0.2-1.3) mg/dL AST (17-59) IU/L ALT (<50) IU/L Alkaline Phosphatase (38-126) U/L Total Creatine Kinase (55-170) U/L CK-MB (CK-2) CK-MB (CK-2) Rel Index Troponin I (0.01-0.034) ng/mL Total Protein (6.3-8.2) g/dL Albumin (3.5-5.0) g/dL Globulin (1.7-4.1) g/dL Albumin/Globulin Ratio (1.0-2.8) Triglycerides (35-150) mg/dL Amylase (30-110) U/L Lipase (23-300) U/L Urine RBC (0-5/HPF) Urine WBC (0-5/HPF) Ur Squamous Epith Cells (0-5/HPF) Urine Bacteria (None) Ur Culture Indicated? COVID-19 PCR Negative (Negative) Point of care testing: Point of Care Testing Glucose POC 153 Urine Dip Bedside Urine Glucose Negative Bedside Urine Bilirubin - Negative Bedside Urine Ketone - Negative Urine Specific [place] 1.015 Bedside Urine Occult Blood + Bedside Urine pH 6.0 Bedside Urine Protein - Negative Bedside Urine Urobilinogen - Negative Bedside Urine Nitrite - Negative Bedside Urine Leukocytes - Negative Esterase Discharge Plan Departure Patient Disposition: Admitted As Inpatient Clinical Impression: Pancreatitis Admit Date/Time: 05/11/20 17:29 Admit Provider: Rafael Bryant <Anthony Durham, DO - Last Filed: 05/11/20 18:26> Cosign ED Attending Cosignature Attestation: Dr Durham Co-Sign Statement: I was available for consultation during this patient's emergency department visit. This chart is signed by myself for administrative purposes only. I did not have direct contact with this patient during this visit. They were seen independently by the APC.
[2020-05-11] MEDS: SODIUM CHLORIDE 0.9% 1,000 ML 1000 ML IV ×2 (14:01→15:22)
[2020-05-11] MEDS: ONDANSETRON 4 MG/2 ML INJ IV (14:02)
[2020-05-11] MEDS: MORPHINE 4 MG/ML INJ IV (14:02)
[2020-05-11 14:08] LABS: Add Manual Diff / Slide Review NO; Basophils Absolute Auto 0 /uL (0-100); Basophils Percent Auto 0.2 % (0-2); Eosinophils Absolute Auto 100 /uL (0-450); Eosinophils Percent Auto 1.3 % (2-4); Hematocrit 45.9 % (41-53); Hemoglobin 15.8 g/dL (13.5-17.5); Lymphocytes Absolute Auto 1400 /uL (1100-4500); Lymphocytes Percent Auto 14.7 % (25-40); Mean Corpuscular HGB Conc 34.4 % (30-36); Monocytes Absolute Auto 400 /uL (0-900); Monocytes Percent Auto 4.6 % (3-14); Neutrophils Absolute Auto 7600 /uL (1500-7000); Neutrophils Percent Auto 79.2 % (50-75); Platelet Count 151 X10^3/uL (150-400); Red Blood Cell Count 4.78 X10^6/uL (4.5-5.9); Red Cell Distribution Width 13.4 % (11.6-14.8); White Blood Cell Count 9.6 X10^3/uL (4.5-11.0)
[2020-05-11 14:16] LABS: INR 0.9 (0.9-1.3); Prothrombin Time 10.9 SECONDS (10.1-12.7)
[2020-05-11 14:19] LABS: PTT Partial Thromboplastin Tim 31 SECONDS (26.4-36.2)
[2020-05-11 14:20] LABS: Creatine Kinase 32 U/L (55-170)
[2020-05-11 14:21] LABS: Alanine Aminotransferase 26 IU/L (<50); Albumin 4.1 g/dL (3.5-5.0); Albumin Globulin Ratio 1.5 (1.0-2.8); Alkaline Phosphatase 113 U/L (38-126); Amylase 176 U/L (30-110); Aspartate Aminotransferase 55 IU/L (17-59); BUN Creatinine Ratio 30.2 (6-22); Bilirubin Total 0.5 mg/dL (0.2-1.3); Blood Urea Nitrogen 16 mg/dL (9-20); Calcium 9.2 mg/dL (8.4-10.2); Carbon Dioxide 25 mmol/L (22-32); Chloride 104 mmol/L (98-107); Estimated Glomerular Filt Rate > 60.0 mL/min (>60); Globulin 2.8 g/dL (1.7-4.1); Glucose 231 mg/dL (80-110); HEMOLYSIS 26 (0-50); Lipase 1866 U/L (23-300); Sodium 134 mmol/L (137-145); Total Protein 6.9 g/dL (6.3-8.2)
[2020-05-11 14:33] LABS: Troponin I < 0.012 ng/mL (0.01-0.034)
--- NOTE | 2020-05-11 14:37 | DI.CT.S_ITS ---
PROCEDURE: CT ABDOMEN PELVIS W CON INDICATIONS: abd pain, elevated lipase TECHNIQUE: After the administration of intravenous contrast, 5 mm thick sections acquired from the diaphragm to the symphysis. 5 mm coronal and sagittal reformats were acquired. For radiation dose reduction, the following was used: automated exposure control, adjustment of mA and/or kV according to patient size. COMPARISON: [facility], CT, KIDNEY/ URETER/BLADDER, 12/26/2011, 11:58. [facility], US, US ABDOMEN COMPLETE, 05/11/2019, 10:03. FINDINGS: Image quality: Excellent. ABDOMEN: Lung bases: Lung bases are clear. Heart size is normal. Solid organs: Liver is normal in size and enhancement. Diffuse fatty liver infiltration is noted. Gallbladder wall is not thickened. Biliary system is non dilated. There is moderate inflammatory change seen surrounding the pancreas. The pancreatic duct is mildly dilated, measuring up to 5 mm. The pancreas enhances normally, without necrotic areas. No pancreatic pseudocysts are seen. Spleen is normal in size and enhancement. No adrenal nodules. Kidneys demonstrate normal size and enhancement, without hydronephrosis. The previously seen right-sided kidney stone is no longer seen. Peritoneum and bowel: Bowel loops demonstrate normal wall thickness and caliber. No free fluid or air. Nodes and vessels: No retroperitoneal or mesenteric adenopathy by size criteria. Aorta and inferior vena cava are normal in size. Advanced atherosclerotic calcification can be seen in the aorta, the iliac arteries, and the proximal aortic branches. Miscellaneous: No ventral hernias. PELVIS: Genitourinary: Bladder wall thickness is normal. There is a prominent right-sided hydrocele. Miscellaneous: No inguinal hernias or adenopathy. Bones: No suspicious bony lesions. A right iliac wing bone island can be seen, as on series 2, image 61 No vertebral body compression fractures. Mild levoconvex scoliotic curvature is noted. Age-appropriate bony degenerative changes are seen. IMPRESSION: Pancreatitis, without pancreatic necrosis or pseudocyst formation. The pancreatic duct is mildly dilated at 5 mm. No subhash biliary dilatation can be seen. Incidental note is made of: Fatty liver infiltration Advanced atherosclerotic calcification Levoconvex scoliotic curvature Stable right iliac wing bone island Prominent right-sided hydrocele Dictated by: Joey Álvarez M.D. on 05/11/2020 at 14:21 Approved by: Joey Álvarez M.D. on 05/11/2020 at 14:26
[2020-05-11] MEDS: HYDROMORPHONE 1 MG INJ IV ×4 (14:46→22:04)
--- NOTE | 2020-05-11 15:58 | PC.NURSE ---
patients blood pressure still remains elevated after two different doses of pain medication. provider notified and ordered for patient to get his daily dose of blood pressure medication. verbal order read back for patient to get 100mg of atenolol. no new orders at this time.
[2020-05-11] MEDS: atenoloL 50 MG TABLET 100 MG PO (16:05)
[2020-05-11 16:31] LABS: Bacteria Urine None Seen; WBC Urine None Seen (0-5/HPF)
[2020-05-11 16:34] LABS: COVID19 -Nasal RAPID Negative (Negative)
[2020-05-11 16:44] LABS: RBC Urine 0-1/HPF (0-5/HPF)
[2020-05-11 16:45] LABS: Culture Indicated Urine Cult Not Indicated; Squamous Epithelial Cell Urine None Seen (0-5/HPF)
[2020-05-11 17:07] LABS: Triglycerides 1109 mg/dL (35-150)
--- NOTE | 2020-05-11 18:09 | P.HP_ITS ---
History of Present Illness History of Present Illness Date Patient Seen: 05/11/20 Time Patient Seen: 18:09 Date of Onset of Symptoms: 05/11/20 Chief complaint: sharp pain in tummy shakey Narrative: Ez Williamson is a 69-year-old male with a past medical history of hypertension, hyperlipidemia, alcohol abuse, and chronic low back pain who p resented with severe epigastric abdominal pain starting this morning. Patient states he woke up this morning with sharp, constant epigastric pain radiating into his mid and low back. He was able to tolerate breakfast and some oral intake, but his pain continued to worsen so he decided to come to the emergency room. He denies recent fevers, but states that he was sweaty this morning, chills, chest pain, shortness of breath, dysuria, urinary frequency, lower extremity edema, rashes. He denies any recent weight changes, diarrhea, or constipation. He has had no change in his stool color. He reports a prior history of pancreatitis approximately 30 years ago, but did not remember the exact etiology. He states his entire family has issues with cholesterol, and his son was diagnosed with high cholesterol at age 8 and recently diabetes. He reports drinking about 5 oz of hard liquor daily, he has a long history of drinking but recently stopped for a year but restarted a few months ago. He is also an on and off smoker. In the emergency room, patient was hypertensive but improved with his home medications and pain control, and the remainder of as vital signs are unremarkable. Initial CBC was unremarkable. Coagulation studies were normal. Chemistries revealed an elevated glucose of 231, negative troponin, but a lipase of 1866. Creatinine was unremarkable further at 0.53. UA did not show evidence of infection and COVID-19 testing was negative. Asked the ER to add on a trigly ceride level which was 1109. Abdominal ultrasound did not show any biliary pathology. Abdominal CT showed pancreatitis with mild pancreatic duct dilatation at 5 mm but no other gross biliary pathology. EKG was unremarkable. Patient will be admitted to the ICU for an insulin infusion to treat hype rtriglyceridemic pancreatitis. His abdominal pain was improved but still present after morphine, but markedly improved after administration of 1 mg of Dilaudid. Patient History Medical History (Updated 05/11/20 @ 17:26 by PIYUSH Edmondson) Chronic back pain Chronic low back pain (Unknown) Essential hypertension (04/07/15) Hydrocele of testis (Unknown) Hyperlipemia (Unknown) Hypertension (Unknown) Kidney stones (Unknown) Left knee pain Pancreatitis (1990) Peripheral artery disease (Unknown) Pure hyperglyceridemia (04/07/15) Uncomplicated opioid dependence Uncomplicated opioid dependence (05/22/17) Surgical History History of lithotripsy Hx of tonsillectomy (Unknown) Family & Social History Family History (Updated 05/11/20 @ 18:18 by Rafael Bryant DO) Father Hyperlipidemia Safety & Behavioral: Feels Safe in Current Yes Environment Been Physically Hurt or No Threatened By a Person Tobacco & Substance use: Smoking Status Current every day smoker alcohol intake current alcohol intake frequency 0-2 drinks per day Meds Home Medications and Allergies Home Medications Medication Instructions Recorded Confirmed Type gemfibrozil 600 mg tablet 600 mg PO BIDAC #60 tab 12/12/17 05/11/20 Rx oxycodone 5 mg tablet 5 mg PO TID PRN #90 tab 02/11/18 05/11/20 Rx carisoprodol 350 mg tablet 350 mg PO BID PRN #60 tab 02/12/18 05/11/20 Rx oxycodone 5 mg tablet 5 mg PO TID PRN #90 tab 02/12/18 05/10/19 Rx oxycodone 5 mg tablet 5 mg PO TID PRN #90 tab 02/12/18 05/10/19 Rx atenolol 100 mg tablet 100 mg PO Q DAY #90 tab 08/14/18 05/11/20 Rx Allergies Allergy/AdvReac Type Severity Reaction Status Date / Time No Known Drug Allergies Allergy Verified 05/11/20 13:43 Review of Systems Review of Systems Narrative: All other systems reviewed with the patient and are negative unless otherwise stated. Exam Vital Signs (past 8 hours): - 05/11/20 13:44 05/11/20 14:16 05/11/20 14:30 Temperature 97.8 F Pulse Rate 74 82 83 Respiratory Rate 18 Blood Pressure Pulse Oximetry 99 97 97 05/11/20 14:31 05/11/20 15:00 05/11/20 15:01 Temperature Pulse Rate 77 84 91 H Respiratory Rate Blood Pressure 212/105 H 200/94 H Pulse Oximetry 97 96 96 05/11/20 15:19 05/11/20 15:29 05/11/20 15:30 Temperature Pulse Rate 87 86 84 Respiratory Rate Blood Pressure 214/116 H 207/100 H 214/98 H Pulse Oximetry 98 97 98 05/11/20 15:45 05/11/20 16:14 05/11/20 16:29 Temperature Pulse Rate 93 H Respiratory Rate Blood Pressure 217/94 H 191/101 H Pulse Oximetry 97 05/11/20 16:30 05/11/20 16:52 05/11/20 17:01 Temperature Pulse Rate Respiratory Rate Blood Pressure 190/89 H 188/81 H 171/75 H Pulse Oximetry 05/11/20 17:43 05/11/20 17:44 05/11/20 17:45 Temperature Pulse Rate 65 66 Respiratory Rate Blood Pressure 173/86 H Pulse Oximetry 96 96 Oxygen Delivery Method Room Air Narrative Exam Narrative: GENERAL APPEARANCE: Well developed, well nourished, in no acute distress. SKIN: Inspection of the skin reveals no rashes, ulcerations or petechiae. HEENT: Normocephalic atraumatic, extraocular muscles are intact, oropharynx is clear and mucous membranes are moist, neck is supple without adenopathy NECK: Supple and symmetric. There was no thyroid enlargement, and no tenderness, or masses were felt. CHEST: Normal AP diameter and normal contour without any kyphoscoliosis. LUNGS: Auscultation of the lungs revealed no wheezes, rhonchi, or rales. CARDIOVASCULAR: There was a regular rate and rhythm without any murmurs, gallops, rubs. Peripheral pulses were 2+ and symmetric. ABDOMEN: Soft, mildly distended, with tenderness in epigastrium. No guarding or rebound. MUSCULOSKELETAL: There was no tenderness or effusions noted. Muscle strength and tone were normal. EXTREMITIES: No cyanosis, clubbing or edema. NEUROLOGIC: Alert and oriented x 3. Normal affect. Gait was normal. Strength is +5/5 in the Upper Extremities and Lower Extremities Bilaterally. Sensation to touch was normal. Objective ECG Impression: Normal sinus rhythm with a rate in the 70s, no concerning ST or T- wave abnormalities. Imaging CT scan - abdomen: Radiologist's impression: Pancreatitis, without pancreatic necrosis or pseudocyst formation. The pancreatic duct is mildly dilated at 5 mm. No subhash biliary dilatation can be seen. Incidental note is made of: Fatty liver infiltration Advanced atherosclerotic calcification Levoconvex scoliotic curvature Stable right iliac wing bone island Prominent right-sided hydrocele Labs Result Diagrams: 05/11/20 14:02 05/11/20 14:02 Labs: Laboratory Results - last 24 hr 05/11/20 05/11/20 05/11/20 14:02 14:02 14:02 WBC 9.6 RBC 4.78 Hgb 15.8 Hct 45.9 MCV 96.0 MCH 33.0 MCHC 34.4 RDW 13.4 Plt Count 151 Neut % (Auto) 79.2 H Lymph % (Auto) 14.7 L [place] % (Auto) 4.6 Eos % (Auto) 1.3 L Baso % (Auto) 0.2 Neut # (Auto) 7600 H Lymph # (Auto) 1400 [place] # (Auto) 400 Eos # (Auto) 100 Baso # (Auto) 0 PT 10.9 INR 0.9 APTT 31 Sodium 134 L Potassium 4.0 Chloride 104 Carbon Dioxide 25 BUN 16 Creatinine 0.53 L Estimated GFR > 60.0 BUN/Creatinine Ratio 30.2 H Glucose 231 H Calcium 9.2 Total Bilirubin 0.5 AST 55 ALT 26 Alkaline Phosphatase 113 Total Creatine Kinase CK-MB (CK-2) CK-MB (CK-2) Rel Index Troponin I Total Protein 6.9 Albumin 4.1 Globulin 2.8 Albumin/Globulin Ratio 1.5 Triglycerides Amylase 176 H Lipase 1866 H Urine RBC Urine WBC Ur Squamous Epith Cells Urine Bacteria Ur Culture Indicated? COVID-19 PCR 05/11/20 05/11/20 05/11/20 14:02 14:02 16:07 WBC RBC Hgb Hct MCV MCH MCHC RDW Plt Count Neut % (Auto) Lymph % (Auto) [place] % (Auto) Eos % (Auto) Baso % (Auto) Neut # (Auto) Lymph # (Auto) [place] # (Auto) Eos # (Auto) Baso # (Auto) PT INR APTT Sodium Potassium Chloride Carbon Dioxide BUN Creatinine Estimated GFR BUN/Creatinine Ratio Glucose Calcium Total Bilirubin AST ALT Alkaline Phosphatase Total Creatine Kinase 32 L CK-MB (CK-2) TNP CK-MB (CK-2) Rel Index TNP Troponin I < 0.012 Total Protein Albumin Globulin Albumin/Globulin Ratio Triglycerides 1109 H Amylase Lipase Urine RBC 0-1/hpf Urine WBC None seen Ur Squamous Epith Cells None seen Urine Bacteria None seen Ur Culture Indicated? Cult not indicated COVID-19 PCR 05/11/20 16:14 WBC RBC Hgb Hct MCV MCH MCHC RDW Plt Count Neut % (Auto) Lymph % (Auto) [place] % (Auto) Eos % (Auto) Baso % (Auto) Neut # (Auto) Lymph # (Auto) [place] # (Auto) Eos # (Auto) Baso # (Auto) PT INR APTT Sodium Potassium Chloride Carbon Dioxide BUN Creatinine Estimated GFR BUN/Creatinine Ratio Glucose Calcium Total Bilirubin AST ALT Alkaline Phosphatase Total Creatine Kinase CK-MB (CK-2) CK-MB (CK-2) Rel Index Troponin I Total Protein Albumin Globulin Albumin/Globulin Ratio Triglycerides Amylase Lipase Urine RBC Urine WBC Ur Squamous Epith Cells Urine Bacteria Ur Culture Indicated? COVID-19 PCR Negative Assessment & Plan Assessment & Plan narrative: Ez Williamson is a 69-year-old male with a past medical history of hypertension, hyperlipidemia, alcohol abuse, and chronic low back pain who presented with severe epigastric abdominal pain starting this morning. He is admitted to the ICU with acute pancreatitis, likely multifactorial but with a triglyceride level of over 1000, for an insulin infusion. 1. Acute pancreatitis, present on admission, active -likely multifactorial in the setting of chronic alcohol use as well as hypertriglyceridemia. Triglyceride level is 1109 on admission. -no evidence of biliary pathology on abdominal ultrasound. CT abdomen showing acute pancreatitis with mild pancreatic duct dilatation at 5 mm but no other dilatation is noted. -continue insulin infusion at 0.1 units/kg per hour minimum, with D10 infusion until triglyceride level is below 500. Fingersticks Q1 hr while on insulin infusion unless stable over many hours. Will repeat lipid panel in the morning. Once below 500 patient will start fenofibrate as his Lopid is not seemingly effective and will add statin therapy as well as there is concern for muscle toxicitiy with lopid and a statin. -NPO overnight with IV fluids as noted above -pain control with Dilaudid 1 mg Q 3hr. -dietary consultation 2. HTN, chronic -admitting blood pressure is likely elevated in the setting of acute pain as they have been improving. Will continue his home medications which may need to be adjusted once his pain is better controlled. Continue home atenolol 100mg daily. 3. Alcohol abuse, chronic -patient endorses 5 oz of hard liquor daily, and a long history of alcohol use in the past. He had been sober for approximately 1 year before restarting a few months ago. -he denies any prior history of alcohol withdrawal, but he is at increased risk given his opiate use as well. -will continue to monitor for signs and symptoms of withdrawal. 4. Chronic low back pain with chronic opiate use -will continue IV Dilaudid as noted above, given his chronic opiate use he likely has a developed tolerance and may require increased dosing for his acute pancreatitis. -hold home carisoprolol, can have small doses of valium if needed for spasm. 5. Hypertriglyceridemia, acute on chronic, present on admission. - patient with high triglycerides up to 300 on previous lab testing. Suspect recent rise is potentially related to EtOH use and possible underlying diabetes given glucose of >200 on admission - will add A1c, start fenofibrate and statin therapy as noted above. - counseled on EtoH cessation, he wishes to stop drinking. 6. Tobacco use, acute Code: full, as discussed with the patient. Surrogate decision maker is the patient's . DVT: Lovenox daily Dispo: Admit to ICU for insulin infusion. Stay is expected to exceed two midnights. I spent 35 minutes providing critical care management this patient. This excludes time spent in performing separately billed procedures. COVID-19 COVID-19 status: Negative
[2020-05-11] MEDS: INSULIN DRIP PREMIX 100 UNIT/100 ML PLAST..BAG 8.57 UNIT IV (18:42)
[2020-05-11] MEDS: DEXTROSE 10 % IN WATER 1,000 ML 100 ML IV (18:43)
[2020-05-11] MEDS: DEXTROSE 50 % IN WATER 25 GM/50 ML SYRINGE IV (20:46)
--- NOTE | 2020-05-11 21:42 | PC.ADMIT ---
[id number] [facility] Admission Note: The patient,Ez Williamson,69 y/o, was given written information regarding hospital policies, unit procedures and contact persons. Patient's smoking status: Former smoker. Vital Signs - 8 hr 05/11/20 13:44 05/11/20 14:16 05/11/20 14:30 Temperature 97.8 F Pulse Rate 74 82 83 Respiratory Rate 18 Blood Pressure Pulse Oximetry 99 97 97 05/11/20 14:31 05/11/20 15:00 05/11/20 15:01 Temperature Pulse Rate 77 84 91 H Respiratory Rate Blood Pressure 212/105 H 200/94 H Pulse Oximetry 97 96 96 05/11/20 15:19 05/11/20 15:29 05/11/20 15:30 Temperature Pulse Rate 87 86 84 Respiratory Rate Blood Pressure 214/116 H 207/100 H 214/98 H Pulse Oximetry 98 97 98 05/11/20 15:45 05/11/20 16:14 05/11/20 16:29 Temperature Pulse Rate 93 H Respiratory Rate Blood Pressure 217/94 H 191/101 H Pulse Oximetry 97 05/11/20 16:30 05/11/20 16:52 05/11/20 17:01 Temperature Pulse Rate Respiratory Rate Blood Pressure 190/89 H 188/81 H 171/75 H Pulse Oximetry 05/11/20 17:43 05/11/20 17:44 05/11/20 17:45 Temperature Pulse Rate 65 66 68 Respiratory Rate Blood Pressure 173/86 H Pulse Oximetry 96 96 96 05/11/20 18:00 05/11/20 18:30 05/11/20 18:34 Temperature Pulse Rate 66 63 65 Respiratory Rate Blood Pressure 198/93 H Pulse Oximetry 95 96 94 05/11/20 18:49 05/11/20 18:50 05/11/20 19:00 Temperature Pulse Rate 66 64 58 L Respiratory Rate 19 21 19 Blood Pressure 178/86 H 170/84 H Pulse Oximetry 97 97 92 05/11/20 19:30 05/11/20 20:00 05/11/20 20:30 Temperature Pulse Rate 62 57 L 65 Respiratory Rate 22 16 24 Blood Pressure 170/78 H 146/72 H 140/74 Pulse Oximetry 96 91 96 Patient up to ICU via stretcher from ED. Patient A&O, calm and cooperative. Patient was able to get off of the stretcher and ambulate to ICU bed, gait steady. Blood sugar checked at that time 89, Patient denies any hypoglycemia symptoms. D10W also infusing at 100ml/hr. Patient rates abd pain 8/10 but says he can wait until the next pain med in 50min.
[2020-05-12] VITALS (14 sets, daily range): BP systolic 135–180; BP diastolic 75–81; PULSE 58–83; RESP 17–20; TEMP 36.1–36.9; O2SAT 96–99
[2020-05-12] MEDS: HYDROMORPHONE 2 MG INJ IV ×5 (00:45→09:20)
[2020-05-12] MEDS: DEXTROSE 50 % IN WATER 25 GM/50 ML SYRINGE IV ×3 (00:45→04:48)
--- NOTE | 2020-05-12 02:20 | PC.NURSE ---
Addendum entered by Loraine Witt R.N. 05/12/20 06:15: 0600 blood glucose 166. Magnesium, Potassium infusion started. Patient has not slept throughout shift due to constant activity. VSS throughout the night, despite hypertension. Patient has voided well throughout the shift, and has been up to the restroom multiple times. Patient has spoken to his , Desiree this morning and she has been updated by the RN. Addendum entered by Loraine Witt R.N. 05/12/20 05:44: 0533 blood sugar 54. Patient drinking more clear liquids at this time. Will recheck sugar at 0600. VENU Lobo notified of critical blood glucose at 0538 and interventions performed. Addendum entered by Loraine Witt R.N. 05/12/20 04:55: 0449 blood sugar 43. Patient states he feels bad. 1 amp D50 administered. Will follow up in 30 minutes with blood sugar recheck. Hydralazine 5 mg IV x1 also administered at this time for BP 178/81. Will follow up with BP recheck as well. Addendum entered by Loraine Witt R.N. 05/12/20 04:16: 0230 blood sugar 69. Patient stated he would try clear liquids again to maintain blood sugar. Patient ate 2 jellos, and 1 240 mL juice cup. 0300 blood sugar 116. 0400 blood sugar 85 - patient remains with 8-9/10 abdominal pain, with break through pain before 3 hour edwige is reached. VENU Lobo notified of these findings and of persistent hypertension. Orders received for change in frequency of PRN pain medication. Original Note: shift boss note: This RN took over patient care with insulin drip infusing at 8.5 units/hr and D10W at 125 mL/hr. Patient's blood sugar at 2320 45. Patient drank 2 240 mL juice cups, and 2 packets of honey - per patient request. Blood sugar recheck at 2347 - 105. 0030 blood sugar down to 57. 1 amp D50 administered due to patient not wanting any more clear liquids due to increase in abdominal pain. 0100 blood sugar 156 0130 blood sugar 47 - 1 amp D50 administered. Patient sweaty, complaining of a hot flash. VENU Lobo notified of findings and yoyo effect of blood sugars. D10W infusion rate increased to 150 mL/hr. 0200 blood sugar 77
[2020-05-12] MEDS: DEXTROSE 10 % IN WATER 1,000 ML 150 ML IV (03:21)
[2020-05-12] MEDS: INSULIN DRIP PREMIX 100 UNIT/100 ML PLAST..BAG 8.5 UNIT IV (04:06)
[2020-05-12] MEDS: HYDRALAZINE 20 MG/ML VIAL 5 MG IV (04:41)
[2020-05-12 05:11] LABS: Add Manual Diff / Slide Review NO; Basophils Absolute Auto 200 /uL (0-100); Basophils Percent Auto 1.8 % (0-2); Eosinophils Absolute Auto 500 /uL (0-450); Eosinophils Percent Auto 3.8 % (2-4); Hematocrit 42.9 % (41-53); Hemoglobin 14.5 g/dL (13.5-17.5); Lymphocytes Absolute Auto 1600 /uL (1100-4500); Mean Corpuscular HGB Conc 33.9 % (30-36); Mean Corpuscular Hemoglobin 32.8 PG (26-34); Mean Corpuscular Volume 96.6 fL (80-100); Monocytes Absolute Auto 600 /uL (0-900); Monocytes Percent Auto 4.8 % (3-14); Neutrophils Absolute Auto 10200 /uL (1500-7000); Neutrophils Percent Auto 77.6 % (50-75); Platelet Count 174 X10^3/uL (150-400); Red Blood Cell Count 4.44 X10^6/uL (4.5-5.9); Red Cell Distribution Width 13.4 % (11.6-14.8); White Blood Cell Count 13.1 X10^3/uL (4.5-11.0)
[2020-05-12 05:19] LABS: Alanine Aminotransferase 22 IU/L (<50); Albumin 3.8 g/dL (3.5-5.0); Albumin Globulin Ratio 1.5 (1.0-2.8); Alkaline Phosphatase 84 U/L (38-126); Aspartate Aminotransferase 51 IU/L (17-59); BUN Creatinine Ratio 23.8 (6-22); Bilirubin Total 0.8 mg/dL (0.2-1.3); Bilirubin Unconjugated 0.6 mg/dL (0.0-1.1); Blood Urea Nitrogen 10 mg/dL (9-20); Calcium 9.1 mg/dL (8.4-10.2); Carbon Dioxide 28 mmol/L (22-32); Chloride 101 mmol/L (98-107); Cholesterol 188 mg/dL (140-199); Estimated Glomerular Filt Rate > 60.0 mL/min (>60); Globulin 2.6 g/dL (1.7-4.1); HDL Cholesterol 39 mg/dL (40-60); HEMOLYSIS < 15 (0-50); Magnesium 1.6 mg/dL (1.6-2.3); Phosphorous 3.9 mg/dL (2.3-3.7); Potassium 3.2 mmol/L (3.4-5.1); Sodium 135 mmol/L (137-145); Total Protein 6.4 g/dL (6.3-8.2); Triglycerides 516 mg/dL (35-150)
[2020-05-12 05:27] LABS: Hemoglobin A1C% w Est Avg Glu 8.8 % (4.0-6.0)
[2020-05-12 05:39] LABS: Glucose 43 mg/dL (80-110)
[2020-05-12] MEDS: POTASSIUM CHLORIDE 20 MEQ TAB 40 MEQ PO (05:57)
[2020-05-12] MEDS: MAGNESIUM SULFATE 2 GM/50 ML PIGGYBACK IV (05:58)
[2020-05-12] MEDS: POTASSIUM CHLORIDE 40 MEQ in SODIUM CHLORIDE 0.9% 500 ML 130 ML IV (05:58)
[2020-05-12] MEDS: atenoloL 50 MG TABLET 100 MG PO (09:15)
[2020-05-12] MEDS: ENOXAPARIN 40 MG/0.4 ML SYRINGE SUBCUT (09:16)
[2020-05-12 10:20] LABS: Triglycerides 386 mg/dL (35-150)
--- NOTE | 2020-05-12 10:57 | P.PN_ITS ---
Subjective Subjective Date Patient Seen: 05/12/20 Time Patient Seen: 10:57 Interval history: Ez Williamson is a 69-year-old male with a past medical history of hypertension, hyperlipidemia, alcohol abuse, and chronic low back pain who presented with severe epigastric abdominal pain and was admitted to the ICU for insulin infusion secondary to hypertriglyceridemic pancreatitis, now TG improved to <500 and taken off insulin infusion this AM. He reports improvement in his abdominal pain this morning, and denies any nausea or vomiting. Overnight there was difficulty with hypoglycemia given the need for his insulin infusion but he was generally able to keep his sugar up with occasional clears. His A1c came back at 8.8% this morning. He was also seen by dietary today. Blood pressures have been labile, suspect secondary to his abdominal pain. Exam Vital Signs (past 8 hours): - 05/12/20 04:00 05/12/20 04:41 05/12/20 05:42 Temperature 97.0 F L Pulse Rate 60 58 L 60 Respiratory Rate 17 Blood Pressure 178/81 H 178/81 H 168/76 H Pulse Oximetry 99 05/12/20 06:00 05/12/20 08:00 05/12/20 10:38 Temperature 98.1 F Pulse Rate 69 Respiratory Rate 18 Blood Pressure 180/75 H Pulse Oximetry 99 97 96 Oxygen Delivery Method Room Air Oxygen Flow Rate 0 Narrative Exam Narrative: GENERAL APPEARANCE: Well developed, well nourished, in no acute distress. SKIN: Inspection of the skin reveals no rashes, ulcerations or petechiae. HEENT: Normocephalic atraumatic, extraocular muscles are intact, oropharynx is clear and mucous membranes are moist, neck is supple without adenopathy NECK: Supple and symmetric. There was no thyroid enlargement, and no tenderness, or masses were felt. CHEST: Normal AP diameter and normal contour without any kyphoscoliosis. LUNGS: Auscultation of the lungs revealed no wheezes, rhonchi, or rales. CARDIOVASCULAR: There was a regular rate and rhythm without any murmurs, gallops, rubs. Peripheral pulses were 2+ and symmetric. ABDOMEN: Soft, mildly distended, with tenderness in epigastrium. No guarding or rebound. MUSCULOSKELETAL: There was no tenderness or effusions noted. Muscle strength and tone were normal. EXTREMITIES: No cyanosis, clubbing or edema. NEUROLOGIC: Alert and oriented x 3. Normal affect. Gait was normal. Strength is +5/5 in the Upper Extremities and Lower Extremities Bilaterally. Sensation to touch was normal. Objective Labs Result Diagrams: 05/12/20 04:45 05/12/20 04:45 Labs: Laboratory Results - last 24 hr 05/11/20 05/11/20 05/11/20 14:02 14:02 14:02 WBC 9.6 RBC 4.78 Hgb 15.8 Hct 45.9 MCV 96.0 MCH 33.0 MCHC 34.4 RDW 13.4 Plt Count 151 Neut % (Auto) 79.2 H Lymph % (Auto) 14.7 L [place] % (Auto) 4.6 Eos % (Auto) 1.3 L Baso % (Auto) 0.2 Neut # (Auto) 7600 H Lymph # (Auto) 1400 [place] # (Auto) 400 Eos # (Auto) 100 Baso # (Auto) 0 PT 10.9 INR 0.9 APTT 31 Sodium 134 L Potassium 4.0 Chloride 104 Carbon Dioxide 25 BUN 16 Creatinine 0.53 L Estimated GFR > 60.0 BUN/Creatinine Ratio 30.2 H Glucose 231 H Hemoglobin A1c Calcium 9.2 Phosphorus Magnesium Total Bilirubin 0.5 Conjugated Bilirubin Unconjugated Bilirubin AST 55 ALT 26 Alkaline Phosphatase 113 Total Creatine Kinase CK-MB (CK-2) CK-MB (CK-2) Rel Index Troponin I Total Protein 6.9 Albumin 4.1 Globulin 2.8 Albumin/Globulin Ratio 1.5 Triglycerides Cholesterol LDL Cholesterol, Calc HDL Cholesterol Amylase 176 H Lipase 1866 H Urine RBC Urine WBC Ur Squamous Epith Cells Urine Bacteria Ur Culture Indicated? Nasal Screen MRSA (PCR) COVID-19 PCR 05/11/20 05/11/20 05/11/20 14:02 14:02 16:07 WBC RBC Hgb Hct MCV MCH MCHC RDW Plt Count Neut % (Auto) Lymph % (Auto) [place] % (Auto) Eos % (Auto) Baso % (Auto) Neut # (Auto) Lymph # (Auto) [place] # (Auto) Eos # (Auto) Baso # (Auto) PT INR APTT Sodium Potassium Chloride Carbon Dioxide BUN Creatinine Estimated GFR BUN/Creatinine Ratio Glucose Hemoglobin A1c Calcium Phosphorus Magnesium Total Bilirubin Conjugated Bilirubin Unconjugated Bilirubin AST ALT Alkaline Phosphatase Total Creatine Kinase 32 L CK-MB (CK-2) TNP CK-MB (CK-2) Rel Index TNP Troponin I < 0.012 Total Protein Albumin Globulin Albumin/Globulin Ratio Triglycerides 1109 H Cholesterol LDL Cholesterol, Calc HDL Cholesterol Amylase Lipase Urine RBC 0-1/hpf Urine WBC None seen Ur Squamous Epith Cells None seen Urine Bacteria None seen Ur Culture Indicated? Cult not indicated Nasal Screen MRSA (PCR) COVID-19 PCR 05/11/20 05/11/20 05/12/20 16:14 21:40 04:45 WBC 13.1 H RBC 4.44 L Hgb 14.5 Hct 42.9 MCV 96.6 MCH 32.8 MCHC 33.9 RDW 13.4 Plt Count 174 Neut % (Auto) 77.6 H Lymph % (Auto) 12.0 L [place] % (Auto) 4.8 Eos % (Auto) 3.8 Baso % (Auto) 1.8 Neut # (Auto) 97993 H Lymph # (Auto) 1600 [place] # (Auto) 600 Eos # (Auto) 500 H Baso # (Auto) 200 H PT INR APTT Sodium Potassium Chloride Carbon Dioxide BUN Creatinine Estimated GFR BUN/Creatinine Ratio Glucose Hemoglobin A1c Calcium Phosphorus Magnesium Total Bilirubin Conjugated Bilirubin Unconjugated Bilirubin AST ALT Alkaline Phosphatase Total Creatine Kinase CK-MB (CK-2) CK-MB (CK-2) Rel Index Troponin I Total Protein Albumin Globulin Albumin/Globulin Ratio Triglycerides Cholesterol LDL Cholesterol, Calc HDL Cholesterol Amylase Lipase Urine RBC Urine WBC Ur Squamous Epith Cells Urine Bacteria Ur Culture Indicated? Nasal Screen MRSA (PCR) Negative for mrsa COVID-19 PCR Negative 05/12/20 05/12/20 05/12/20 04:45 04:45 09:30 WBC RBC Hgb Hct MCV MCH MCHC RDW Plt Count Neut % (Auto) Lymph % (Auto) [place] % (Auto) Eos % (Auto) Baso % (Auto) Neut # (Auto) Lymph # (Auto) [place] # (Auto) Eos # (Auto) Baso # (Auto) PT INR APTT Sodium 135 L Potassium 3.2 L Chloride 101 Carbon Dioxide 28 BUN 10 Creatinine 0.42 L Estimated GFR > 60.0 BUN/Creatinine Ratio 23.8 H Glucose 43 L* D Hemoglobin A1c 8.8 H Calcium 9.1 Phosphorus 3.9 H Magnesium 1.6 Total Bilirubin 0.8 Conjugated Bilirubin 0.0 Unconjugated Bilirubin 0.6 AST 51 ALT 22 Alkaline Phosphatase 84 Total Creatine Kinase CK-MB (CK-2) CK-MB (CK-2) Rel Index Troponin I Total Protein 6.4 Albumin 3.8 Globulin 2.6 Albumin/Globulin Ratio 1.5 Triglycerides 516 H 386 H Cholesterol 188 LDL Cholesterol, Calc TNP HDL Cholesterol 39 L Amylase Lipase Urine RBC Urine WBC Ur Squamous Epith Cells Urine Bacteria Ur Culture Indicated? Nasal Screen MRSA (PCR) COVID-19 PCR PFSH Medical History (Updated 05/11/20 @ 17:26 by MARK Edmondson-) Chronic back pain Chronic low back pain (Unknown) Essential hypertension (04/07/15) Hydrocele of testis (Unknown) Hyperlipemia (Unknown) Hypertension (Unknown) Kidney stones (Unknown) Left knee pain Pancreatitis (1990) Peripheral artery disease (Unknown) Pure hyperglyceridemia (04/07/15) Uncomplicated opioid dependence Uncomplicated opioid dependence (05/22/17) Surgical History History of lithotripsy Hx of tonsillectomy (Unknown) Family History (Updated 05/11/20 @ 18:18 by Rafael Bryant DO) Father Hyperlipidemia Social History household members: spouse Smoking Status: Former smoker Tobacco: How many years used: 30 second hand exposure: No alcohol intake: current substance use type: does not use Assessment & Plan Assessment & Plan narrative: Ez Williamson is a 69-year-old male with a past medical history of hypertension, hyperlipidemia, alcohol abuse, and chronic low back pain who presented with severe epigastric abdominal pain and was admitted to the ICU for insulin infusion secondary to hypertriglyceridemic pancreatitis, now TG improved to <500 and taken off insulin infusion this AM. 1. Acute pancreatitis, present on admission, active -likely multifactorial in the setting of chronic alcohol use as well as hypert riglyceridemia. Triglyceride level is 1109 on admission. -no evidence of biliary pathology on abdominal ultrasound. CT abdomen showing acute pancreatitis with mild pancreatic duct dilatation at 5 mm but no other dilatation is noted. -continued insulin infusion at 0.1 units/kg per hour minimum, with D10 infusion until triglyceride level was below 500, now 386 this AM. Have stopped his Lopid and started on fenofibrate with statin therapy instead. -Advance to clears today, transition to oral pain control methods primarily with IV dosing for breakthrough. -dietary consultation appreciated. 2. HTN, chronic -admitting blood pressure is likely elevated in the setting of acute pain as they have been improving. Will continue his home medications which may need to be adjusted once his pain is better controlled. Continue home atenolol 100mg daily. 3. Alcohol abuse, chronic -patient endorses 5 oz of hard liquor daily, and a long history of alcohol use in the past. He had been sober for approximately 1 year before restarting a few months ago. -he denies any prior history of alcohol withdrawal, but he is at increased risk given his opiate use as well. -will continue to monitor for signs and symptoms of withdrawal. 4. Chronic low back pain with chronic opiate use -will continue IV Dilaudid as noted above, given his chronic opiate use he likely has a developed tolerance and may require increased dosing for his acute pancreatitis. -hold home carisoprolol, can have small doses of valium if needed for spasm. 5. Hypertriglyceridemia, acute on chronic, present on admission. - patient with high triglycerides up to 300 on previous lab testing. Suspect recent rise is potentially related to EtOH use and underlying new uncontrolled DM. - will add A1c, start fenofibrate and statin therapy as noted above. - counseled on EtoH cessation, he wishes to stop drinking. 6. Tobacco use, acute 7. Type 2 diabetes mellitus, new diagnosis, present on admission - A1c 8.8%, admission glucose >200. Started on insulin infusion initially for high triglycerides. Will remain on sliding scale only at this time given he is slightly hypoglycemic this AM. Will continue to follow and would recommend at least metformin on discharge, does not necessarily need insulin upon discharge given A1c is <9% but still a possibility. Code: full, as discussed with the patient. Surrogate decision maker is the patient's . DVT: Lovenox daily Dispo: stable for regular floor once hypoglycemia is improved after insulin infusion stopped this AM. I spent 30 minutes providing critical care management this patient. This excludes time spent in performing separately billed procedures. Quality VTE Deep Vein Thrombosis/Pulmonary Embolism Present on Admission: No
[2020-05-12] MEDS: FENOFIBRATE 145 MG TABLET PO (12:15)
[2020-05-12] MEDS: HYDROMORPHONE 2 MG TABLET PO ×3 (12:16→23:33)
--- NOTE | 2020-05-12 13:36 | DIET.PN ---
Dietary Progress Note Assessment: 69y M admitted c hypertriglyceremia and acute pancreatitis found to have elevated A1c of 8.8 referred to nutrition for diabetic teaching. 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 Pt works at the local [employer] store and his food recall shows 1 main meal and one snack daily. Pt has recently started drinking around 5 etoh equivalents daily (weak vodka Martinez Thurman') to relax and take the edge off when transitioning from the day's work and partially in dealing with his 's reduced function related to her MS. Pts Martinez Thurman mix contains 35g sugar and 35g CHO per serving. Pt reports he will stop drinking these as they are likely culprit for high A1c, high TGs, and pancreatitis. This RD does not recommend outpatient DMSE at this time as pt aware of issues leading to current situation, his commitment to change, and his dislike for group setting classes. Recc f/u A1c in 3 and 6mo by PCP and annual surveillance moving forward.
--- NOTE | 2020-05-12 14:57 | CM.DANOTE ---
Patient is a 69 year old male who was admitted on 05/11/20 for [facility] Pain. Pt has MCR for insurance and his PCP is Dr. Finn Bonilla. EMR was reviewed. Per MD, pt admitted for pancreatitis and has new diagnosis of diabetes and was on insulin drip with plan to d/c drip today and will start clears but likely not stable for d/c until maybe tomorrow. Replenishment Analyst met bedside with pt and did teaching and education and provided good information for pt to utilize at home. SW met bedside with pt and explained role and he confirms he lives at home with spouse on [facility] and is active and independent at baseline. Pt denies any hx of HH or SNF and spouse is his DPOA. Pt does not utilize DME for ambulation. Pt confirms that [place] and she is aware pt may be stable for d/c tomorrow and plans to provide transport. SW inquired about pt's current alcohol use and pt confirms he has been a drinker for many many years and quite for at least a year but slowly got back into having a drink a day. Pt denies any need for CD treatment or resources and is adamant that he plans to abstain especially after going through pancreatitis and knowing how alcohol can impact his health. Pt denies any difficulty with abstaining once he discharges home. Pt not currently on CIWA protocol and denies any hx of withdrawal symptoms. Pt has been independently ambulating the halls and in his room. Pt hopeful for home tomorrow. Plan: SW to follow for likely plan of home via spouse POV tomorrow if medically stable. SW to follow for any further identified discharge planning needs. ENRIQUE Patricia Discharge Planning/Care Management Advanced directive, confirm from FAMILY Start: 05/11/20 21:36 Freq: Q24H Status: Complete Protocol: Document 05/12/20 08:09 TJB (Rec: 05/12/20 08:10 TJB [id number]) Advance Directive, confirm on record Time 08:10 Person contacted pt Copy received No Document 05/12/20 09:00 TJB (Rec: 05/12/20 10:38 TJB [id number]) Advance Directive, confirm on record Time 08:10 Person contacted pt Copy received No Document 05/12/20 10:38 TJB (Rec: 05/12/20 10:38 AARON [id number]) Advance Directive, confirm on record Time 08:10 Person contacted pt Copy received No CM Discharge Assessment Start: 05/12/20 14:55 Freq: Status: Active Protocol: Document 05/12/20 14:56 BF (Rec: 05/12/20 14:57 BF [id number]) Discharge Planning Assessment Assigned Bi Report Developer ENRIQUE Garcia DPOA/Assigned Designee Name spouse Desiree Contact Information [phone] Advance Directives? Yes History Provided By Patient,Medical Record Has Patient been admitted in last 30 No days? Prior Living Arrangements House Household Members spouse Type of transporation used prior to Drives own vehicle admit Independent with ADL's Yes Is patient alert and oriented? Yes Caregiver for Another No Comment Home Barriers to Discharge No Discharge Plan Home Transportation Arrangement Spouse will be bedside tomorrow and plans to provide transport Referrals Initiated None needed Whiteboard Updated in Patient Room with Yes name and ext. # of Bi Report Developer Review Status In Process Please Provide Date Initial DC 05/12/20 Assessment Was Performed Next Review Type Continued Stay Review
[2020-05-12] MEDS: INSULIN ASPART 100 UNIT/ML INSULN PEN SUBCUT (17:16)
[2020-05-12 19:40] LABS: Lipase 808 U/L (23-300)
[2020-05-12] MEDS: ATORVASTATIN 20 MG TABLET 80 MG PO (20:49)
[2020-05-13 05:19] VITALS: BP 189/88; PULSE 64; RESP 16; TEMP 36.6; O2SAT 98
[2020-05-13 05:22] LABS: Add Manual Diff / Slide Review NO; Basophils Absolute Auto 200 /uL (0-100); Basophils Percent Auto 2.4 % (0-2); Eosinophils Absolute Auto 400 /uL (0-450); Eosinophils Percent Auto 5.5 % (2-4); Hematocrit 41.8 % (41-53); Hemoglobin 14.2 g/dL (13.5-17.5); Lymphocytes Absolute Auto 1200 /uL (1100-4500); Lymphocytes Percent Auto 17.2 % (25-40); Mean Corpuscular Volume 96.9 fL (80-100); Monocytes Absolute Auto 300 /uL (0-900); Monocytes Percent Auto 3.9 % (3-14); Neutrophils Absolute Auto 5000 /uL (1500-7000); Platelet Count 119 X10^3/uL (150-400); Red Blood Cell Count 4.31 X10^6/uL (4.5-5.9); Red Cell Distribution Width 13.3 % (11.6-14.8)
[2020-05-13 05:30] LABS: Lipase 516 U/L (23-300)
[2020-05-13 05:32] LABS: Alanine Aminotransferase 19 IU/L (<50); Albumin 3.5 g/dL (3.5-5.0); Albumin Globulin Ratio 1.4 (1.0-2.8); Alkaline Phosphatase 80 U/L (38-126); Aspartate Aminotransferase 36 IU/L (17-59); BUN Creatinine Ratio 26.1 (6-22); Bilirubin Unconjugated 0.9 mg/dL (0.0-1.1); Blood Urea Nitrogen 12 mg/dL (9-20); Calcium 8.8 mg/dL (8.4-10.2); Carbon Dioxide 29 mmol/L (22-32); Chloride 102 mmol/L (98-107); Estimated Glomerular Filt Rate > 60.0 mL/min (>60); Globulin 2.5 g/dL (1.7-4.1); Glucose 167 mg/dL (80-110); HEMOLYSIS < 15 (0-50); Magnesium 1.8 mg/dL (1.6-2.3); Phosphorous 3.3 mg/dL (2.3-3.7); Potassium 3.9 mmol/L (3.4-5.1); Sodium 133 mmol/L (137-145)
[2020-05-13] MEDS: atenoloL 50 MG TABLET 100 MG PO (06:46)
[2020-05-13 07:43] VITALS: BP 166/75; PULSE 61; RESP 16; TEMP 36.4; O2SAT 98
[2020-05-13 08:00] VITALS: O2SAT 98
[2020-05-13] MEDS: ENOXAPARIN 40 MG/0.4 ML SYRINGE SUBCUT (08:49)
[2020-05-13] MEDS: INSULIN ASPART 100 UNIT/ML INSULN PEN SUBCUT (08:49)
[2020-05-13] MEDS: FENOFIBRATE 145 MG TABLET PO (08:49)
--- NOTE | 2020-05-13 10:41 | PM.DS.1 ---
History of Present Illness History of Present Illness Date Patient Seen: 05/11/20 Chief complaint: sharp pain in tummy shakey Narrative: Written by Dr. Bryant: Ez Williamson is a 69-year-old male with a past medical history of hypertension, hyperlipidemia, alcohol abuse, and chronic low back pain who presented with severe epigastric abdominal pain starting this morning. Patient states he woke up this morning with sharp, constant epigastric pain radiating into his mid and low back. He was able to tolerate breakfast and some oral intake, but his pain continued to worsen so he decided to come to the emergency room. He denies recent fevers, but states that he was sweaty this morning, chills, chest pain, shortness of breath, dysuria, urinary frequency, lower extremity edema, rashes. He denies any recent weight changes, diarrhea, or constipation. He has had no change in his stool color. He reports a prior history of pancreatitis approximately 30 years ago, but did not remember the exact etiology. He states his entire family has issues with cholesterol, and his son was diagnosed with high cholesterol at age 8 and recently diabetes. He reports drinking about 5 oz of hard liquor daily, he has a long history of drinking but recently stopped for a year but restarted a few months ago. He is also an on and off smoker. In the emergency room, patient was hypertensive but improved with his home medications and pain control, and the remainder of as vital signs are unremarkable. Initial CBC was unremarkable. Coagulation studies were normal. Chemistries revealed an elevated glucose of 231, negative troponin, but a lipase of 1866. Creatinine was unremarkable further at 0.53. UA did not show evidence of infection and COVID-19 testing was negative. Asked the ER to add on a triglyceride level which was 1109. Abdominal ultrasound did not show any biliary pathology. Abdominal CT showed pancreatitis with mild pancreatic duct dilatation at 5 mm but no other gross biliary pathology. EKG was unremarkable. Patient will be admitted to the ICU for an insulin infusion to treat hypertriglyceridemic pancreatitis. His abdominal pain was improved but still present after morphine, but markedly improved after administration of 1 mg of Dilaudid. Discharge Providers Provider Date of admission: 05/11/20 17:29 Discharge Date: 05/13/20 Primary care physician: Finn Bonilla MD Consults: 05/11/20 18:31 Consult to Dietitian, Adult Routine Comment: Reason For Exam: Hypertriglyceridemic pancreatitis Discharge provider: Shanel Vines DO Summary Hospital Course Discharge Diagnosis: 1. Acute pancreatitis, present on admission. Resolving. 2. Alcohol abuse, chronic, present on admission. Stable. 3. Hypertriglyceridemia, acute on chronic, present on admission. Acute portion resolved. 4. Newly diagnosed type 2 diabetes mellitus, chronic, present on admission. Stable. 5. Hypertension, chronic, present on admission. Stable. 6. Chronic low back pain with opiate dependence, Present on admission. Stable. 7. Tobacco dependence, chronic, present on admission. Stable. Hospital Course: Ez Williamson is a 69-year-old male with a past medical history significant for hypertension, hyperlipidemia, alcohol abuse, and chronic low back painWith opiate dependence who presented to the ED with severe epigastric abdominal pain. 1. Acute pancreatitis, present on admission. Resolving. -Likely multifactorial in the setting of chronic alcohol abuse, as well as, hypertriglyceridemia. -No evidence of biliary pathology on abdominal ultrasound. CT abdomen and pelvis with contrast demonstrated acute pancreatitis with mild pancreatic duct dilatation at 5 mm but no other dilatation is noted. -Initial lipase 1866. Lipase trended down and nearly normalized at 516. -Treated triglycerides of 1109 as below. -Continued to advance diet clears to/soft low-fat which the patient tolerated well. Consulted dietitian and we appreciate her time and recommendations. -Continued pain control with oxycodone 5 mg every 8 hours as needed for moderate to severe pain. 2. Alcohol abuse, chronic, present on admission. Stable. -Patient endorses 5 Martinez Thurman drinks a day and a long history of alcohol use in the past. He had been sober for approximately 1 year before restarting a few months ago. -He denies any prior history of alcohol withdrawal, alcohol withdrawal seizures or DT's and he was at increased risk given his opiate use as well. -Continued to monitor for signs and symptoms of withdrawal with low threshold to start CIWA protocol. Patient did not exhibit throughout hospitalization. -Counseled the patient on alcohol cessation for which he plans to stop drinking after discharge. 3. Hypertriglyceridemia, acute on chronic, present on admission. Acute portion resolved. -Patient previously with high triglycerides up to 351 in 12/2018. Suspect recent rise is potentially related to EtOH use and underlying new uncontrolled DM. -Initial triglyceride level 1109 on admission. Started insulin infusion at 0.1 units/kg per hour minimum, with D10 infusion until triglyceride level was below 500 then discontinued. Triglcerides level now 386. Switched gemfibrozil to fenofibrate 145 mg daily and atorvastatin 40 mg daily at bedtime for better lipid control. -Counseled the patient on alcohol cessation and diabetes in detail as above and below. 4. Newly diagnosed type 2 diabetes mellitus, chronic, present on admission. Stable. -Hemoglobin A1c 8.8% indicative of poorly controlled diabetes and admission glucose >200. -Started on insulin gtt to treat high triglycerides as above until under 500 then discontinued. Continued ACHS blood glucose checks and started and continued low dose correctional scale insulin while slowly advancing diet. Recommend starting metformin per PCP once complete recover from pancreatitis and tolerating normal diet. -Counseled the patient regarding diabetes including diagnosis, management and risks of complications. 5. Hypertension, chronic, present on admission. Stable. -Admitting blood pressure elevated in the setting of acute pain and improved with pain control. -Continued home atenolol 100mg daily. 6. Chronic low back pain with opiate dependence, Present on admission. Stable. -Discontinued IV dilaudid. Continued home oxycodone 5 every 8 hours for pain. -Held home carisoprolol and allowed small doses of valium if needed for m uscle spasm. 7. Tobacco dependence, chronic, present on admission. Stable. -Patient smokes 0.25-0.5 PPD. -Counseled the patient regarding smoking cessation and risk associated including cancers and especially pancreatitis. Exam Vital Signs (past 8 hours): - 05/13/20 05:19 05/13/20 07:43 05/13/20 08:00 Temperature 97.8 F 97.5 F L Pulse Rate 64 61 Respiratory Rate 16 16 Blood Pressure 189/88 H 166/75 H Pulse Oximetry 98 98 98 Oxygen Delivery Method Room Air Oxygen Flow Rate 0 Narrative Exam Narrative: General: Older thin gentleman sitting in bed and in no acute distress, well-developed, appropriately interactive. HEENT: Normocephalic, atraumatic. External ears without defect. Pupils equal, round, and reactive to light. Anicteric sclerae, moist conjunctivae, and no lid lag. Oropharynx free of erythema and cobble stoning with moist mucosa. Neck: Supple with full range of motion. No jugular venous distension. No lymphadenopathy or thyromegaly. Cardiovascular: Regular rate and rhythm without murmurs, rubs, or gallops appreciated. Pulmonary: Clear to auscultation bilaterally without crackles, wheezes, or rhonchi. Normal respiratory effort with no use of accessory muscles. Abdomen: Soft, bowel sounds present, nontender, nondistended. Extremities: No clubbing, cyanosis, or edema. Skin: Normal temperature, turgor, and texture; no rash, ulcers, or subcutaneous nodules appreciated. Neurological: Cranial nerves grossly intact. Psychiatric: Normal mood and affect. Alert and oriented to person, place, and time. Objective Labs Result Diagrams: 05/13/20 05:08 05/13/20 05:08 Labs: Laboratory Results - last 24 hr 05/12/20 05/13/20 05/13/20 04:45 05:08 05:08 WBC 7.0 RBC 4.31 L Hgb 14.2 Hct 41.8 MCV 96.9 MCH 33.0 MCHC 34.0 RDW 13.3 Plt Count 119 L Neut % (Auto) 71.0 Lymph % (Auto) 17.2 L [place] % (Auto) 3.9 Eos % (Auto) 5.5 H Baso % (Auto) 2.4 H Neut # (Auto) 5000 Lymph # (Auto) 1200 [place] # (Auto) 300 Eos # (Auto) 400 Baso # (Auto) 200 H Sodium 133 L Potassium 3.9 Chloride 102 Carbon Dioxide 29 BUN 12 Creatinine 0.46 L Estimated GFR > 60.0 BUN/Creatinine Ratio 26.1 H Glucose 167 H D Calcium 8.8 Phosphorus 3.3 Magnesium 1.8 Total Bilirubin 1.0 Conjugated Bilirubin 0.0 Unconjugated Bilirubin 0.9 AST 36 ALT 19 Alkaline Phosphatase 80 Total Protein 6.0 L Albumin 3.5 Globulin 2.5 Albumin/Globulin Ratio 1.4 Lipase 808 H D 05/13/20 05:08 WBC RBC Hgb Hct MCV MCH MCHC RDW Plt Count Neut % (Auto) Lymph % (Auto) [place] % (Auto) Eos % (Auto) Baso % (Auto) Neut # (Auto) Lymph # (Auto) [place] # (Auto) Eos # (Auto) Baso # (Auto) Sodium Potassium Chloride Carbon Dioxide BUN Creatinine Estimated GFR BUN/Creatinine Ratio Glucose Calcium Phosphorus Magnesium Total Bilirubin Conjugated Bilirubin Unconjugated Bilirubin AST ALT Alkaline Phosphatase Total Protein Albumin Globulin Albumin/Globulin Ratio Lipase 516 H [facility] Medical History (Updated 05/11/20 @ 17:26 by MARK Edmondson-) Chronic back pain Chronic low back pain (Unknown) Essential hypertension (04/07/15) Hydrocele of testis (Unknown) Hyperlipemia (Unknown) Hypertension (Unknown) Kidney stones (Unknown) Left knee pain Pancreatitis (1990) Peripheral artery disease (Unknown) Pure hyperglyceridemia (04/07/15) Uncomplicated opioid dependence Uncomplicated opioid dependence (05/22/17) Surgical History History of lithotripsy Hx of tonsillectomy (Unknown) Family History (Updated 05/11/20 @ 18:18 by Rafael Bryant DO) Father Hyperlipidemia Social History household members: spouse Smoking Status: Former smoker Tobacco: How many years used: 30 second hand exposure: No alcohol intake: current substance use type: does not use Discharge Plan Discharge Plan Patient Disposition: Home Provider Discharge Comment: You are being discharged home. You had pancreatitis due to alcohol use and high triglycerides. Please abstain from alcohol indefinitely. You have been prescribed atorvastatin 40 mg daily at bedtime and fenofibrate 145 mg daily to treat your high triglycerides and cholesterol. You have newly diagnosed diabetes mellitus type 2 and should be started on an oral medication to help lower blood sugar by your PCP in the next 1-2 weeks once you have recovered from pancreatitis. You may continue to consume a liquid/soft bland low-fat diet over the next several days and slowly advance as tolerated. If you began having abdominal pain back off and allow GI rest. Please follow-up with your primary care physician, Dr. Bonilla, in the next 3-5 days regarding your hospitalization and treatment of diabetes. Discharge orders & Medications Prescriptions: New atorvastatin [Lipitor] 20 mg Tablet 40 mg PO BEDTIME Qty: 30 RF: 0 fenofibrate nanocrystallized [Tricor] 145 mg Tablet 145 mg PO DAILY Qty: 30 RF: 0 Continued carisoprodol 350 mg tablet 350 mg PO BID PRN (Reason: muscle pain) Qty: 60 RF: 0 oxycodone 5 mg tablet 5 mg PO TID PRN (Reason: pain) Qty: 90 RF: 0 atenolol 100 mg tablet 100 mg PO Q DAY Qty: 90 RF: 1 Discontinued gemfibrozil 600 mg tablet 600 mg PO BIDAC Qty: 60 RF: 6 Follow up/Referrals: Finn Bonilla MD [Primary Care Provider] - 3-5 Days Diet/Activity/Treatments Diet: Diet as Tolerated Diet comment: Low fat soft/liquid diet over next several days & advance to normal Activity: Activity as tolerated Visit Report/Discharge Packet Instructions: High Triglycerides, [place] Diet, Fat-Restricted Diet, DI for Pancreatitis, Atorvastatin, Fenofibrate Discharge Data Primary Care Provider: Finn Bonilla Quality VTE Deep Vein Thrombosis/Pulmonary Embolism Present on Admission: No
[2020-05-13 10:45] VITALS: BP 160/78; PULSE 56; RESP 16; TEMP 36.5; O2SAT 98
[2020-05-13 13:00] VITALS: O2SAT 98
--- NOTE | 2020-05-13 13:10 | PC.NURSE ---
Pt states he is ready to be discharged home. Pt has not been on narcotics so he has his own car here and will be driving himself home. Went over d/c instructions with Pt-discussed d/c meds, time of last dose, reviewed stroke education, performed extensive dietary education regarding pancreatitis and diabetes-discussed low fat, low sugar easily digestible foods and to advance as tolerated within those parameters but if pain increases he should taper back to more tolerable foods. Pt to follow up with Dr. Bonilla in the next 3-5 days and will make his own appointment on Friday morning. Reviewed stroke education and Pt denies further question. Pt out via w/c by [employer] to POV with all belongings.
== END 2020-05-13 13:17 | disposition home or self-care (01) | DRG 440 ==
LOC: ED 17:26 → AC 17:30 → ICU 21:06
PROVIDERS: Internal Medicine; Admitting Provider Internal Medicine; Emergency Provider Nurse Practitioner Family; Family Provider Family Medicine; PCP Family Medicine; Referring Provider Nurse Practitioner Family; Visit Provider Internal Medicine
DX: K85.20 Alcohol induced acute pancreatitis without necrosis or infection (principal); E78.1 Pure hyperglyceridemia; K85.80 Other acute pancreatitis without necrosis or infection; F10.10 Alcohol abuse, uncomplicated; E11.9 Type 2 diabetes mellitus without complications; I10 Essential (primary) hypertension; G89.29 Other chronic pain; F17.210 Nicotine dependence, cigarettes, uncomplicated; Z11.59 Encounter for screening for other viral diseases
CPT/HCPCS: 36415; 74177; 80048; 80053; 80061; 80076; 81003; 81015; 82150; 82550; 82962; 83036; 83690; 83735; 84100; 84478; 84484; 85025; 85610; 85730; 87635; 87797; 93005; 93010; 96361; 96365; 96366; 96375; 96376; 99283; 99284; J0360; J1170; J1650; J2270; J2405; J3480; Q9967

== ENCOUNTER → 2022-04-18 11:37 | Outpatient (CLI) | payer MEDICARE, BC, SELFPAY ==
[2020-05-11 21:28] VITALS: BMI 24.3
[2022-04-18 13:58] LABS: COVID19 -Nasal RAPID Negative (Negative)
== END ==
PROVIDERS: Family Provider Family Medicine; PCP Family Medicine; Visit Provider Surgery
DX: Z01.812 Encounter for preprocedural laboratory examination (principal); Z20.822 Contact with and (suspected) exposure to COVID-19
CPT/HCPCS: 87635; C9803

== ENCOUNTER 2022-04-19 07:28 | Day surgery (SDC) | payer MEDICARE, BC, SELFPAY ==
[2020-05-11 21:28] VITALS: BMI 24.3
--- NOTE | 2022-04-19 | PATH_ITS ---
[facility] Accession Number: [id number] . 01 Material submitted: . PART A: colon - POLYP AT APPENDICEAL ORIFICE PART B: colon - ASCENDING COLON MUCOSA PART C: colon - DESCENDING COLON POLYP . 01 Diagnosis: A. Polyp at Appendiceal Orifice, Biopsy: Tubular adenoma. . B. Ascending Colon Mucosa, Biopsy: Colonic mucosa within normal limits. . C. Descending Colon Polyp, Polypectomy: Fragments of hyperplastic polyp. MRV 04/26/2022 0745 Local . 01 Electronically signed: . Olive Shankar MD, Pathologist NPI- [id number] . 01 Gross description: . Part A: POLYP AT APPENDICEAL ORIFICE: Received in formalin are 2 fragment(s) of foy, soft tissue measuring 0.1 x 0.1 x 0.1 cm to 0.3 x 0.3 x 0.2 cm submitted entirely in 1 cassette(s) Part B: ASCENDING COLON MUCOSA: Received in formalin are 2 fragment(s) of foy, soft tissue measuring 0.2 x 0.2 x 0.1 cm to 0.3 x 0.2 x 0.2 cm submitted entirely in 1 cassette(s) Part C: DESCENDING COLON POLYP: Received in formalin are 4 fragment(s) of foy, soft tissue measuring 0.2 x 0.2 x 0.1 cm to 0.5 x 0.2 x 0.2 cm submitted entirely in 1 cassette(s) /LUC 04/22/2022 2207 Local . 01 Microscopic: . Deeper levels examined on part C. . 01 Pathologist provided ICD-10: D12.6 . 01 CPT . 644244, 534303, [id number] Specimen Comment: A courtesy copy of this report has been sent to [facility] Performed at: 01 [facility] [address], [place], [place] [id number] MD Zi Jain MD Phone: [phone]
[2022-04-19 08:06] VITALS: BP 159/75; PULSE 56; RESP 16; TEMP 36.4; O2SAT 100
[2022-04-19 08:08] VITALS: BMI 24.1
[2022-04-19] MEDS: LACTATED RINGERS 1,000 ML 100 ML IV (08:18)
--- NOTE | 2022-04-19 08:58 | PM.HP.1 ---
History of Present Illness History of Present Illness Chief complaint: [facility] Narrative: Mr. Williamson presents today for a screening colonoscopy. He not sure but he thinks he has had a polyp, this was more than 5 years ago he last colonoscopy was here at [facility]. He has no family history of colon cancer no bleeding no concerning bowel changes no diarrhea no constipation. Patient History Medical History (Updated 04/19/22 @ 09:00 by Love Moise MD) Chronic back pain Chronic low back pain (Unknown) Essential hypertension (04/07/15) Hydrocele of testis (Unknown) Hyperlipemia (Unknown) Hypertension (Unknown) Kidney stones (Unknown) Left knee pain Pancreatitis (1990) Peripheral artery disease (Unknown) Pure hyperglyceridemia (04/07/15) Uncomplicated opioid dependence Uncomplicated opioid dependence (05/22/17) Surgical History History of lithotripsy Hx of tonsillectomy (Unknown) Family & Social History Family History Father Hyperlipidemia Social History: household members spouse Tobacco & Substance use: Tobacco type cigarettes Smoking Status Former smoker alcohol intake current alcohol intake frequency 0-2 drinks per day Substance Use Type does not use Meds Home Medications and Allergies Home Medications Medication Instructions Recorded Confirmed Type oxycodone 5 mg tablet 5 mg PO TID PRN pain #90 tabs 02/11/18 04/19/22 Rx carisoprodol 350 mg tablet 350 mg PO BID PRN muscle pain #60 02/12/18 04/19/22 Rx tabs atenolol 100 mg tablet 100 mg PO Q DAY #90 tabs 08/14/18 04/19/22 Rx atorvastatin 20 mg tablet (Lipitor) 40 mg PO BEDTIME #30 tabs 05/13/20 04/19/22 Rx fenofibrate nanocrystallized 145 145 mg PO DAILY #30 tabs 05/13/20 04/19/22 Rx mg tablet (Tricor) Allergies Allergy/AdvReac Type Severity Reaction Status Date / Time No Known Drug Allergies Allergy Verified 04/19/22 07:54 Exam Vital Signs (past 8 hours): - 04/19/22 08:06 04/19/22 08:08 Temperature 97.5 F L Pulse Rate 56 L Respiratory Rate 16 Blood Pressure 159/75 H Pulse Oximetry 100 Oxygen Delivery Method Room Air Room Air Oxygen Delivery Method Room Air Const General: cooperative, healthy appearing and comfortable HENMT Head: normal to inspection Eyes General: appearance normal, both eyes and all related structures Resp Effort & Inspection: normal respiratory effort and able to speak in complete sentences GI Palpation: soft and No tender Extrem General: normal to inspection Assessment & Plan Assessment and plan (1) Screen for colon cancer: Status: Acute Plan I discussed the risks benefits and alternatives for screening colonoscopy. Patient had no questions and he wants to proceed. Time Spent With Patient Critical Care time: I spent a total of [] minutes of critical care time on this patient's care today; this time is exclusive of procedural time.
--- NOTE | 2022-04-19 10:25 | P.OP.COLON_ITS ---
Procedure & Clinicians Study performed: Colonoscopy and polypectomy Same procedure as scheduled: Yes Indications: Screening Surgeon: Love Moise Procedure Notes Procedure in detail: Patient was taken to the endoscopy suite and placed in a left lateral decubitus position with the help of anesthesia conscious sedation was performed. Time-out was performed. Digital rectal exam was done. The colonoscope was placed into the anus there were 2 small polyps that were seen at the rectosigmoid junction on the way in. The prep was was not great [place] bowel prep level 2. Lots of time was spent in suctioned and irrigating to visualize the mucosa. The cecum was reached a photograph of the appendiceal orifice was taken the ileocecal valve was seen. There was 1 small polyp taking right by the appendiceal orifice. In the ascending colon there was some cobbled appearing mucosa which was biopsied as well. As we withdrawal through the transverse and into the descending colon I saw 3-4 very small polyps, 2 of which were biopsied in the descending colon and sent as 1 specimen. Upon withdrawal I did see a larger polyp in the rectosigmoid junction which was still less than 1 cm in size, quite small. Due to the amount of spasm in the colon and multiple attempts I just could not get a good visualization on that small polyp to biopsy it. Due to the number of polyps in his colon 3 year follow-up is appropriate. Findings: polyp(s) Post-procedure Recommendations: Colonoscopy in 3 years Disposition: PACU
[2022-04-19 10:33] VITALS: BP 127/55; PULSE 64; RESP 15; TEMP 36.6; O2SAT 97
[2022-04-19 10:39] VITALS: BP 115/54; PULSE 73; RESP 18; O2SAT 98
[2022-04-19 10:43] VITALS: BP 133/53; PULSE 52; RESP 14; TEMP 36.3; O2SAT 100
[2022-04-19 10:47] VITALS: BP 134/65; PULSE 52; RESP 17; TEMP 36.3; O2SAT 98
== END 2022-04-19 10:57 | disposition home or self-care (01) ==
PROVIDERS: Family Provider Family Medicine; PCP Family Medicine; Referring Provider Surgery; Visit Provider Surgery
PROC: 0DJD8ZZ Inspection of Lower Intestinal Tract, Via Natural or Artificial Opening Endoscopic (ICD-10-PCS; CPT 45378; principal; 2022-04-19 08:45)
DX: Z12.11 Encounter for screening for malignant neoplasm of colon (principal); I10 Essential (primary) hypertension; D12.1 Benign neoplasm of appendix; D12.2 Benign neoplasm of ascending colon
CPT/HCPCS: 45380; J2704

== ENCOUNTER → 2022-06-20 11:42 | Outpatient (CLI) | payer MEDICARE, BC, SELFPAY ==
[2020-05-11 21:28] VITALS: BMI 24.3
[2022-06-20 12:09] LABS: COVID19 -Nasal RAPID Negative (Negative)
== END ==
PROVIDERS: Family Provider Family Medicine; PCP Family Medicine; Visit Provider Specialist
DX: Z20.822 Contact with and (suspected) exposure to COVID-19 (principal)
CPT/HCPCS: 87635; C9803

== ENCOUNTER 2022-06-21 06:59 | Day surgery (SDC) | payer MEDICARE, BC, SELFPAY ==
[2020-05-11 21:28] VITALS: BMI 24.3
[2022-06-14 13:40] VITALS: BMI 24.3
[2022-06-21] VITALS (8 sets, daily range): BP systolic 167–177; BP diastolic 69–79; PULSE 50–59; RESP 12–18; TEMP 36.2–36.7; O2SAT 98–99; BMI 23.8
[2022-06-21] MEDS: LACTATED RINGERS 1,000 ML 21 ML IV (07:32)
[2022-06-21] MEDS: ACETAMINOPHEN IV 1,000 MG/100 ML VIAL 400 MG IV (07:37)
--- NOTE | 2022-06-21 07:41 | PM.PREOP ---
Pre-operative Note COVID-19 Criteria for continued procedure: Expected advancement of disease process, Increased loss of function, Continuing or worsening of significant or severe pain, Deterioration of the patient's condition or overall health, Delay expected to result in less-positive ultimate med/surg outcome and Non-surgical alternatives not available or appropriate per current SOC Interval Note History & Physical reviewed/Exam performed by Physician: Yes Changes to H&P: No
[2022-06-21] MEDS: CEFAZOLIN 2 GM/100 ML PREMIX 100 ML IV (08:02)
--- NOTE | 2022-06-21 08:16 | SUR.OPER ---
Supine on padded OR bed, head on pillow, arms secured on padded arm boards at <90 degrees abduction, legs uncrossed, tape at thigh
[2022-06-21] MEDS: BUPIVACAINE 0.5% W/ EPI (PF) 30 ML VIAL INJ (08:22)
[2022-06-21] MEDS: BUPIVACAINE LIPOSOME 266 MG/20 ML VIAL INJ (08:22)
[2022-06-21] MEDS: NEOMYCIN/POLYMYXIN/BACITRA UD OINT 2 EACH TOP (09:07)
--- NOTE | 2022-06-21 09:24 | PM.OP.1 ---
Operative Date/Time/Diagnoses Date of procedure: 06/21/22 Time of procedure: 09:10 Pre-op diagnosis: Right hydrocele Post-op diagnosis: same Procedure & Clinicians Procedure: 1. Right hydrocelectomy. Same procedure as scheduled: Yes Indications: 1. Symptomatic, large right hydrocele. Surgeon: Megan Teresa Click Yes if Unassisted: Yes Anesthesia Type: General and Local (0.25% Marcaine with epinephrine and 1.33% Exparel diluted 50 :50. ) Operative Notes Findings: Thick, chronically inflamed tunica vaginalis with a loculated septum transversely the screening a superior, and inferior fluid compartment. Closure Type: primary Specimen(s): none sent Applied: drain(s) (Ten Monegasque fenestrated Antonio drain.) Estimated Blood Loss (mL): 2 Blood products transfused: none Procedure in detail: Patient was positioned in supine was administered general anesthesia. The lower abdomen, genitalia, and groin were then prepped and draped in sterile fashion. The skin and subcutaneous tissue of the midline scrotal raphae were then infiltrated was 0.25% Marcaine with epinephrine. The skin and subcutaneous tissue were then divided using the needle-tip cautery pen down to the level of the tunica vaginalis. The appropriate plane was then identified and developed circumferentially and the entire hydrocele complex was delivered from the right hemiscrotum. The tunica vaginalis was then divided in the midline anteriorly and the contents drained. Approximately 350 cc of clear, straw colored fluid were recovered. X, the limited amount of superior hydrocele sac was excised and discarded. A hand binder cutter repair was then conducted in usual fashion using a running horizontal mattress with 2-0 Monocryl. The inferior pole the testis and the posterior aspect of the cord were then carefully secured to the posterior wall of the scrotum using the same suture to stabilize in an anatomic position. Diluted Exparel was then infiltrated at the inferior lateral aspect of the scrotal wall and a 10 Monegasque fenestrated Antonio drain was then passed from inside to outside through this location. The drain was trimmed to appropriate length and positioned appropriately within the right hemiscrotum. The drain was secured to the skin using a Paolo sandal technique of 2-0 silk in usual fashion. A septated is dartos fascia and skin were then infiltrated with diluted Exparel. Dartos fascia was then closed using a running vertical mattress of 2-0 Monocryl. The skin was reapproximated using a horizontal mattress with 4-0 Monocryl. The skin surface was then cleaned and dried. Bacitracin antibiotic ointment was then applied to the incision line. Dry sterile fluffs were then applied to the anterior scrotum and the patient was fitted with an athletic supporter. He was then awakened, transferred to [facility], and then transferred to recovery in stable condition. Complications: none Post-operative Condition: stable Disposition: PACU Plan for aftercare: Discharge home.
[2022-06-21] MEDS: HYDROCODONE/ACET 5/325 TABLET 1 TAB PO ×2 (09:49→10:29)
[2022-06-21] MEDS: fentaNYL 100 MCG/2 ML INJ IV ×2 (09:57→10:07)
--- NOTE | 2022-06-21 10:51 | SUR.PHASEII ---
Small amount of sero-sang drainage to CAMI drain.
== END 2022-06-21 10:45 | disposition home or self-care (01) ==
PROVIDERS: Family Provider Family Medicine; PCP Family Medicine; Referring Provider Specialist; Visit Provider Specialist
PROC: (CPT 55040; principal; 2022-06-21 07:45)
DX: N43.3 Hydrocele, unspecified (principal); Z87.442 Personal history of urinary calculi
CPT/HCPCS: 55040; 82962; C9290; J0131; J0690; J1100; J2250; J2405; J2704; J3010

== ENCOUNTER → 2022-07-26 11:06 | Outpatient (CLI) | payer MEDICARE, BC, SELFPAY ==
[2020-05-11 21:28] VITALS: BMI 24.3
--- NOTE | 2022-07-26 11:09 | DI.US.S_ITS ---
PROCEDURE: US SCROTUM INDICATIONS: TESTICULAR PAIN TECHNIQUE: Real-time scanning was performed of the scrotum and testicles, with image documentation. Color and pulse Doppler interrogation was performed of both testicles. COMPARISON: [facility], , US SCROTUM, 03/12/2018, 9:27. FINDINGS: Right: The right testicle measures 3.5 x 2.1 x 4.3 cm. Echotexture is homogeneous. Scrotal wall is thickened. Large loculated hydrocele with echogenic debris. Unable to visualize epididymis due to hydrocele. Left: Left testicle measures 4 x 2.4 x 3.1 cm. Overall echotexture is homogeneous. Is hydrocele is loculated and moderate in volume. Is unable to visualized epididymis due to hydrocele. Doppler: Color and pulse Doppler demonstrate normal and symmetric arterial flow in both testicles. IMPRESSION: Bilateral complex right greater than left hydroceles. Dictated by: Sy Jason M.D. on 07/26/2022 at 11:51 Approved by: yS Jason M.D. on 07/26/2022 at 11:53
== END ==
PROVIDERS: Family Provider Family Medicine; PCP Family Medicine; Referring Provider Urology; Visit Provider Urology
DX: N43.3 Hydrocele, unspecified (principal)
CPT/HCPCS: 76870

== ENCOUNTER → 2022-11-15 11:04 | Outpatient (CLI) | payer MEDICARE, BC, SELFPAY ==
[2020-05-11 21:28] VITALS: BMI 24.3
--- NOTE | 2022-11-15 11:05 | DI.US.S_ITS ---
PROCEDURE: US SCROTUM INDICATIONS: right hydrocelectomy TECHNIQUE: Real-time scanning was performed of the scrotum and testicles, with image documentation. Color and pulse Doppler interrogation was performed of both testicles. COMPARISON: [facility], , US SCROTUM, 07/26/2022, 11:24. FINDINGS: Right: Testicle is normal in size at 3.9 x 2.7 x 3.9 cm, and homogenous in echotexture. Epididymis is echogenic, and varicocele noted. Extra testicular echogenic debris with internal cysts noted, improved from the prior. Left: Testicle is normal in size at 2.1 x 1.8 x 3.4 cm, and homogeneous in echotexture. Epididymis not clearly visualized. Extra testicular multiple simple and complex loculated cysts are present measuring up to 3.6 x 2.4 cm Doppler: Color and pulse Doppler demonstrate normal and symmetric arterial flow in both testicles. IMPRESSION: Persistent echogenic solid and cystic debris noted bilaterally. Debris has significantly improved on the right . Persistent large complex cystic structure on the left measure up to 3.5 cm Approved by: Demond Reveles M.D. on 11/15/2022 at 17:36
== END ==
PROVIDERS: Family Provider Family Medicine; PCP Family Medicine; Referring Provider Specialist; Visit Provider Specialist
DX: N44.2 Benign cyst of testis (principal); N43.3 Hydrocele, unspecified; N50.89 Other specified disorders of the male genital organs
CPT/HCPCS: 76870

== ENCOUNTER → 2023-01-09 07:18 | Outpatient (CLI) | payer MEDICARE, BC, SELFPAY ==
[2020-05-11 21:28] VITALS: BMI 24.3
[2023-01-09 08:06] LABS: Add Manual Diff / Slide Review NO; Basophils Absolute Auto 0 /uL (0-100); Basophils Percent Auto 0.2 % (0-2); Eosinophils Absolute Auto 100 /uL (0-450); Eosinophils Percent Auto 1.9 % (2-4); Hematocrit 43.4 % (41-53); Hemoglobin 14.8 g/dL (13.5-17.5); Lymphocytes Absolute Auto 1900 /uL (1100-4500); Lymphocytes Percent Auto 25.8 % (25-40); Mean Corpuscular Hemoglobin 30.4 PG (26-34); Mean Corpuscular Volume 89.3 fL (80-100); Monocytes Absolute Auto 500 /uL (0-900); Monocytes Percent Auto 6.4 % (3-14); Neutrophils Absolute Auto 4900 /uL (1500-7000); Neutrophils Percent Auto 65.7 % (50-75); Platelet Count 193 X10^3/uL (150-400); Red Blood Cell Count 4.87 X10^6/uL (4.5-5.9); White Blood Cell Count 7.5 X10^3/uL (4.5-11.0)
[2023-01-09 08:34] LABS: Creatinine Urine Random 99.9 mg/dL
[2023-01-09 08:39] LABS: Alanine Aminotransferase 22 IU/L (<50); Albumin 4.2 g/dL (3.5-5.0); Albumin Globulin Ratio 1.9 (1.0-2.8); Alkaline Phosphatase 36 U/L (38-126); Aspartate Aminotransferase 22 IU/L (17-59); BUN Creatinine Ratio 25.7 (6-22); Bilirubin Total 0.3 mg/dL (0.2-1.3); Blood Urea Nitrogen 26 mg/dL (9-20); Calcium 9.1 mg/dL (8.4-10.2); Carbon Dioxide 29 mmol/L (22-32); Chloride 101 mmol/L (98-107); Cholesterol 118 mg/dL (140-199); Estimated Glomerular Filt Rate > 60 mL/min (>60); Globulin 2.2 g/dL (1.7-4.1); Glucose 113 mg/dL (80-110); HDL Cholesterol 44 mg/dL (40-60); HEMOLYSIS < 15 (0-50); LDL Cholesterol Calculated 49 mg/dL (<100); Potassium 4.4 mmol/L (3.4-5.1); Sodium 137 mmol/L (137-145); Total Protein 6.4 g/dL (6.3-8.2); Triglycerides 125 mg/dL (35-150)
[2023-01-09 08:49] LABS: Microalbumin Urine Random < 0.6 mg/dL (0-1.6)
[2023-01-10 06:33] LABS: Labcorp Hemoglobin (Hb) A1c 6.5 % (4.8-5.6)
== END ==
PROVIDERS: Family Provider Family Medicine; PCP Family Medicine; Referring Provider Family Medicine; Visit Provider Family Medicine
DX: E11.9 Type 2 diabetes mellitus without complications (principal); E78.1 Pure hyperglyceridemia
CPT/HCPCS: 36415; 80053; 80061; 82043; 82570; 83036; 85025

== ENCOUNTER → 2023-04-28 07:34 | Outpatient (CLI) | payer MEDICARE, OTHER, SELFPAY ==
[2020-05-11 21:28] VITALS: BMI 24.3
--- NOTE | 2023-04-28 | DI.US.S_ITS ---
PROCEDURE: US ARTERIAL DUPLEX LE INDICATIONS: CLAUDICATION / PERIPHERAL VASCULAR DISEASE TECHNIQUE: Color and pulse Doppler interrogation was performed of both lower extremity arterial systems, with image documentation. COMPARISON: None. FINDINGS: Right lower extremity: Common femoral artery: 93 cm/sec, with monophasic flow. Deep femoral artery: 324 cm/sec, with monophasic flow. Proximal superficial femoral artery: 55 cm/sec, with monophasic flow at the bifurcation. Mid superficial femoral artery: 81 cm/sec, with monophasic flow. Distal superficial femoral artery: 39 cm/sec, with monophasic flow. Popliteal artery: 49 cm/sec, with monophasic flow. Posterior tibial artery: 46 cm/sec, with monophasic flow. Anterior tibial artery: 17 cm/sec, with monophasic flow. Carroll-scale imaging description: Just distal to the bifurcation no flow is seen. Collateral vessels are visible reconstituting the SFA. In the mid/distal SFA a 2nd stenosis is visualized with ultrasound. Left lower extremity: Common femoral artery: 150 cm/sec, with triphasic flow. Deep femoral artery: 185 cm/sec, with monophasic flow. Proximal superficial femoral artery: 118 cm/sec, with triphasic flow. Mid superficial femoral artery: 53 cm/sec, with monophasic flow. Distal superficial femoral artery: Heavy plaque with no flow Popliteal artery: 29 cm/sec, with monophasic flow. Posterior tibial artery: 41 cm/sec, with monophasic flow. Anterior tibial artery/dorsalis pedis: No flow Carroll-scale imaging description: No flow in the left mid to distal SFA visualized. IMPRESSION: 1. Occlusion of the right proximal SFA. Stenosis of the right mid to distal SFA. 2. Occlusion of the left mid to distal SFA. 3. Reconstitution of flow in both legs below the levels of occlusion with monophasic waveforms distally. 4. Recommend CT angiogram for further evaluation. Dictated by: Valeriy Walker M.D. on 04/28/2023 at 13:38 Approved by: Valeriy Walker M.D. on 04/28/2023 at 13:47
== END ==
PROVIDERS: Family Provider Family Medicine; PCP Family Medicine; Referring Provider Family Medicine; Visit Provider Family Medicine
DX: I73.9 Peripheral vascular disease, unspecified (principal)
CPT/HCPCS: 93925

== ENCOUNTER 2023-11-04 07:25 | Emergency (ER) | payer MEDICARE, OTHER, SELFPAY ==
[2020-05-11 21:28] VITALS: BMI 24.3
[2023-11-04 07:35] VITALS: PULSE 56; O2SAT 100
[2023-11-04 07:43] VITALS: BP 207/93; PULSE 54; RESP 16; O2SAT 100; BMI 24.1
--- NOTE | 2023-11-04 07:48 | DI.RAD.S_ITS ---
PROCEDURE: XR CHEST 1V INDICATIONS: chest pain TECHNIQUE: One view of the chest was acquired. COMPARISON: None. FINDINGS: Surgical changes and devices: None. Lungs and pleura: No dense consolidation or pleural effusion Mediastinum: Heart size is at the upper limit of normal. Bones and chest wall: Degenerative changes IMPRESSION: No acute radiographic abnormality. Dictated by: Sy Jason M.D. on 11/04/2023 at 8:25 Approved by: Sy Jason M.D. on 11/04/2023 at 8:26
[2023-11-04 08:00] VITALS: PULSE 55; RESP 12; O2SAT 99
[2023-11-04 08:01] VITALS: BP 174/79; PULSE 56; RESP 19; O2SAT 99
[2023-11-04 08:01] LABS: Add Manual Diff / Slide Review NO; Basophils Absolute Auto 0 /uL (0-100); Basophils Percent Auto 0.6 % (0-2); Eosinophils Absolute Auto 100 /uL (0-450); Hematocrit 43.3 % (41-53); Hemoglobin 14.5 g/dL (13.5-17.5); Lymphocytes Absolute Auto 1600 /uL (1100-4500); Lymphocytes Percent Auto 22.6 % (25-40); Mean Corpuscular HGB Conc 33.6 % (30-36); Mean Corpuscular Hemoglobin 30.1 PG (26-34); Mean Corpuscular Volume 89.6 fL (80-100); Monocytes Absolute Auto 500 /uL (0-900); Monocytes Percent Auto 7.2 % (3-14); Neutrophils Absolute Auto 4900 /uL (1500-7000); Neutrophils Percent Auto 67.6 % (50-75); Platelet Count 172 X10^3/uL (150-400); Red Blood Cell Count 4.83 X10^6/uL (4.5-5.9); Red Cell Distribution Width 14.9 % (11.6-14.8); White Blood Cell Count 7.2 X10^3/uL (4.5-11.0)
[2023-11-04 08:04] LABS: INR 0.9 (0.9-1.3); Prothrombin Time 10.6 SECONDS (9.4-12.5)
[2023-11-04 08:07] LABS: PTT Partial Thromboplastin Tim 27 SECONDS (25.1-36.5)
[2023-11-04 08:11] LABS: Alanine Aminotransferase 19 IU/L (<50); Albumin 4.3 g/dL (3.5-5.0); Alkaline Phosphatase 39 U/L (38-126); Aspartate Aminotransferase 23 IU/L (17-59); BUN Creatinine Ratio 29.5 (6-22); Bilirubin Total 0.5 mg/dL (0.2-1.3); Blood Urea Nitrogen 23 mg/dL (9-20); Calcium 8.8 mg/dL (8.4-10.2); Carbon Dioxide 24 mmol/L (22-32); Chloride 108 mmol/L (98-107); Creatine Kinase 64 U/L (55-170); Estimated Glomerular Filt Rate > 60 mL/min (>60); Globulin 2.1 g/dL (1.7-4.1); Glucose 131 mg/dL (80-110); HEMOLYSIS 29 (0-50); Lipase 64 U/L (23-300); Magnesium 1.9 mg/dL (1.6-2.3); Potassium 4.3 mmol/L (3.4-5.1); Sodium 139 mmol/L (137-145); Total Protein 6.4 g/dL (6.3-8.2)
[2023-11-04 08:23] LABS: Troponin I < 0.012 ng/mL (0.01-0.034)
[2023-11-04 08:30] VITALS: PULSE 56; RESP 13; O2SAT 99
--- NOTE | 2023-11-04 08:41 | ED_ITS ---
HPI - General Adult General Chief complaint: Dizziness Stated complaint: dizzy, unable to stand t-1 Time Seen by Provider: 11/04/23 07:40 Source: patient Mode of arrival: Ambulatory History of Present Illness HPI narrative: 73-year-old gentleman with history of coronary artery disease, hypertension, hyperlipidemia diabetes who had an episode where he was significantly weak at 2:30 a.m. this morning, such that he gently lowered himself to the ground so that he would not have a syncopal episode. He denies any focal neurologic complaints and states that he is feeling somewhat better this morning. He arrives POV and walks into the emergency department without difficulty. He denies any recent trauma, fever, chills, nausea, vomiting, palpitations, daytime fatigue, orthopnea, lower extremity edema Related Data Home Medications Medication Instructions Recorded Confirmed metformin 500 mg tablet 500 mg PO BID 07/16/22 11/18/22 oxycodone 5 mg capsule 5 mg PO TID PRN 11/18/22 11/18/22 Previous Rx's Medication Instructions Recorded carisoprodol 350 mg tablet 350 mg PO BID PRN muscle pain #60 02/12/18 tabs atenolol 100 mg tablet 100 mg PO Q DAY #90 tabs 08/14/18 atorvastatin 20 mg tablet (Lipitor) 40 mg (2 x 20 mg) PO BEDTIME #30 05/13/20 tabs fenofibrate nanocrystallized 145 145 mg PO DAILY #30 tabs 20 mg tablet (Tricor) sulfamethoxazole 400 1 tab PO BID #14 tabs 07/16/22 mg-trimethoprim 80 mg tablet (Bactrim) Allergies Allergy/AdvReac Type Severity Reaction Status Date / Time No Known Drug Allergies Allergy Verified 11/18/22 13:49 Review of Systems Review of Systems Narrative: Pertinent positive and negative findings as per HPI Patient History Medical History History of nephrolithiasis Left hydrocele Hematuria Bilateral hydrocele Peripheral artery disease (Unknown) Pancreatitis (1990) Chronic low back pain (Unknown) Hydrocele of testis (Unknown) Kidney stones (Unknown) Hyperlipemia (Unknown) Hypertension (Unknown) Uncomplicated opioid dependence (05/22/17) Pure hyperglyceridemia (04/07/15) Essential hypertension (04/07/15) Uncomplicated opioid dependence Left knee pain Chronic back pain Surgical History History of laparoscopy Hx of tonsillectomy (Unknown) History of lithotripsy Family History Father Hyperlipidemia Cancer Son Diabetes mellitus Social History marital status: number of children: 1 household members: spouse Smoking Status: Current some day smoker Tobacco: How many years used: 30 second hand exposure: No alcohol intake: current substance use type: does not use Type(s) of exercise: walking frequency: daily Smoking Status: Current some day smoker alcohol intake frequency: a few times a week Substance Use Type: does not use Exam Initial Vital Signs Initial Vital Signs: Vital Signs Pulse Rate 54 L 11/04/23 07:43 Respiratory Rate 16 11/04/23 07:43 Blood Pressure 207/93 H 11/04/23 07:43 Pulse Oximetry 100 11/04/23 07:43 Oxygen Delivery Method Room Air 11/04/23 07:43 General: Healthy appearing, in no acute distress. Able to give a complete and coherent history. Well-nourished well-developed HEENT: Moist mucous membranes, normal sclera with reactive pupils, Neck: No JVD, supple Respiratory: Lungs are clear to auscultation, no wheezing no rales no rhonchi. Full and symmetrical air movement Cardiac: Regular rate and rhythm no murmurs no bruits Abdomen: Soft, nontender, good bowel tones, no flank pain Skin: Warm and dry, no rashes Neurologic: Grossly neurologically intact with no obvious asymmetries or abnormalities Extremities: No trauma, well perfused, no edema Psych: Cooperative, appropriate insight and affect Course Orders Ordered: ED Orders 11/04/23 07:45 Complete Blood Count AUTO DIFF Stat Comprehensive Metabolic Panel Stat Lipase Stat Magnesium Stat PTT Partial Thromboplastin Francesco Stat Prothrombin Time INR Stat Troponin & CK Cardiac Panel Stat 11/04/23 07:48 XR chest 1V Stat EKG-12 Lead Stat 11/04/23 08:33 Urine Microscopic Stat Vital Signs Vital signs: Vital Signs - 8 hr 11/04/23 07:43 Pulse Rate 54 L Respiratory Rate 16 Blood Pressure 207/93 H Pulse Oximetry 100 Oxygen Delivery Method Room Air Medical Decision Making Lab Data 11/04/23 07:45 11/04/23 07:45 Labs: Lab Results 11/04/23 Range/Units 07:45 WBC 7.2 (4.5-11.0) X10^3/uL RBC 4.83 (4.5-5.9) X10^6/uL Hgb 14.5 (13.5-17.5) g/dL Hct 43.3 (41-53) % MCV 89.6 (80-100) fL MCH 30.1 (26-34) PG MCHC 33.6 (30-36) % RDW 14.9 H (11.6-14.8) % Plt Count 172 (150-400) X10^3/uL Neut % (Auto) 67.6 (50-75) % Lymph % (Auto) 22.6 L (25-40) % Parker % (Auto) 7.2 (3-14) % Eos % (Auto) 2.0 (2-4) % Baso % (Auto) 0.6 (0-2) % Neut # (Auto) 4900 (0941-1959) /uL Lymph # (Auto) 1600 (2496-0635) /uL Parker # (Auto) 500 (0-900) /uL Eos # (Auto) 100 (0-450) /uL Baso # (Auto) 0 (0-100) /uL PT 10.6 (9.4-12.5) SECONDS INR 0.9 (0.9-1.3) APTT 27 (25.1-36.5) SECONDS Sodium 139 (137-145) mmol/L Potassium 4.3 (3.4-5.1) mmol/L Chloride 108 H (98-107) mmol/L Carbon Dioxide 24 (22-32) mmol/L BUN 23 H (9-20) mg/dL Creatinine 0.78 (0.66-1.25) mg/dL Estimated GFR > 60 (>60) mL/min BUN/Creatinine Ratio 29.5 H (6-22) Glucose 131 H (80-110) mg/dL Calcium 8.8 (8.4-10.2) mg/dL Magnesium 1.9 (1.6-2.3) mg/dL Total Bilirubin 0.5 (0.2-1.3) mg/dL AST 23 (17-59) IU/L ALT 19 (<50) IU/L Alkaline Phosphatase 39 (38-126) U/L Total Creatine Kinase 64 (55-170) U/L Troponin I < 0.012 (0.01-0.034) ng/mL Total Protein 6.4 (6.3-8.2) g/dL Albumin 4.3 (3.5-5.0) g/dL Globulin 2.1 (1.7-4.1) g/dL Albumin/Globulin Ratio 2.0 (1.0-2.8) Lipase 64 (23-300) U/L Urine Dip Bedside Urine Glucose Negative Bedside Urine Bilirubin - Negative Bedside Urine Ketone - Negative Urine Specific [place] 1.010 Bedside Urine Occult Blood +/- Bedside Urine pH 6.0 Bedside Urine Protein - Negative Bedside Urine Urobilinogen - Negative Bedside Urine Nitrite - Negative Bedside Urine Leukocytes - Negative Esterase Point of care testing: Urine Dip Bedside Urine Glucose Negative Bedside Urine Bilirubin - Negative Bedside Urine Ketone - Negative Urine Specific [place] 1.010 Bedside Urine Occult Blood +/- Bedside Urine pH 6.0 Bedside Urine Protein - Negative Bedside Urine Urobilinogen - Negative Bedside Urine Nitrite - Negative Bedside Urine Leukocytes - Negative Esterase MDM Narrative Medical decision making narrative: CC: Episode of generalized weakness in the middle of the night Complicating co-morbidities: Hypertension, hyperlipidemia. Currently lives in [facility] Data collected from: patient Differential considered: Dehydration, stroke, acute coronary syndrome, sepsis or other infection Exam documented above, pertinent findings include: Patient is feeling fine at this point. Exam is entirely benign. There is no evidence of orthostasis Lab Test results independently reviewed as above. Pertinent findings: CBC is unremarkable no anemia Chemistries are reassuring. Normal creatinine, no significant electrolyte abnormalities liver studies are reassuring Troponin is undetectable Lipase is appropriate Point of care urine does not suggest infection Independently reviewed EKG: Sinus rhythm at a rate of 54. Normal intervals, normal axis, no acute ischemic changes Imaging studies independently reviewed: Chest x-ray shows no significant abnormalities Discussion: 73-year-old gentleman with an episode of weakness when he got up in the middle of the night to void. No actual syncope or falling. He was able to get back in the bed. By this morning he is feeling significantly better but was concerned enough about the episode in the middle of the night that he comes in for further evaluation. Workup is quite reassuring. His troponin drawn at least 6 hours after the initial event is undetectable and does not need to be repeated. Chest x-ray is reassuring there was no evidence of pneumonia, cellulitis, urinary tract infection. Clinical exam does not suggest intra- abdominal infection. There was no evidence of stroke on clinical exam. Discussed with the patient all of the negative findings today reassurance is given. I believe he is safe for discharge and if symptoms worsen change or become more localizing encouraged him to return to the ER Discharge Plan Departure Patient Disposition: Home Clinical Impression: Near syncope Instructions: DI for Syncope in Adults (Fainting) Activity Restrictions/Additional Instructions: Thank you for coming in today I do not have an explanation for these 2 episodes of weakness that you experienced when you got up to the bathroom last night. I can say that I am not finding any evidence of heart attack or heart arrhythmia, stroke, infection of any type, sepsis, kidney failure or electrolyte abnormalities. Your lab work was quite reassuring You are not showing signs of significant dehydration, your heart rate and blood pressure are similar while your lying down sitting and standing At this time I do not have an explanation for your symptoms however if symptoms worsen, change or begin to point in a new direction it would be appropriate to return to the emergency department for further evaluation Prescriptions: No Action carisoprodol 350 mg tablet 350 mg PO BID PRN (Reason: muscle pain) Qty: 60 0RF Rx Instructions: ok to fill on or after 06/03/18 atenolol 100 mg tablet 100 mg PO Q DAY Qty: 90 1RF Rx Instructions: Patient needs appointment before next refill atorvastatin [Lipitor] 20 mg Tablet 40 mg PO BEDTIME Qty: 30 0RF fenofibrate nanocrystallized [Tricor] 145 mg Tablet 145 mg PO DAILY Qty: 30 0RF metformin 500 mg tablet 500 mg PO BID sulfamethoxazole-trimethoprim [Bactrim] 400-80 mg tablet 1 tab PO BID Qty: 14 0RF oxycodone 5 mg capsule 5 mg PO TID PRN Referrals: Finn Bonilla MD [Primary Care Provider] - Stand Alone Forms: Patient Portal/API
[2023-11-04 08:57] LABS: Bacteria Urine None Seen; Culture Indicated Urine Cult Not Indicated; Hyaline Casts Urine 0-1/LPF; RBC Urine 0-1/HPF (0-5/HPF); Squamous Epithelial Cell Urine 0-1 /HPF (0-5/HPF); Urine Volume 10mL (spun); WBC Urine 0-1/HPF (0-5/HPF)
[2023-11-04 09:06] VITALS: TEMP 36.6
== END 2023-11-04 09:07 | disposition home or self-care (01) ==
PROVIDERS: Emergency Provider Emergency Medicine; Family Provider Family Medicine; PCP Family Medicine
DX: R55 Syncope and collapse (principal)
CPT/HCPCS: 36415; 71045; 80053; 81003; 81015; 82550; 83690; 83735; 84484; 85025; 85610; 85730; 93005; 99283; 99284

== ENCOUNTER → 2024-09-22 15:49 | Outpatient (CLI) | payer MEDICARE, OTHER, SELFPAY ==
[2020-05-11 21:28] VITALS: BMI 24.3
[2024-09-22 15:59] LABS: Appearance Urine UA CLOUDY; Bilirubin Urine UA NEGATIVE (NEGATIVE); Color Urine UA OTHER; Glucose Urine UA NEGATIVE (Negative); Ketones Urine UA TRACE (NEGATIVE); Leukocyte Esterase Urine UA TRACE (NEGATIVE); Nitrite Urine UA POSITIVE (Negative); Occult Blood Urine UA 3+ (Negative); Protein Urine UA 2+ (Negative); Specific Gravity Urine UA >=1.030 (1.000-1.035)
[2024-09-22 16:09] LABS: Amorphous Sediment Urine 2+; Bacteria Urine Moderate (10-30); RBC Urine 10-30/HPF (0-5/HPF); Squamous Epithelial Cell Urine 0-1 /HPF (0-5/HPF); Urine Volume 10mL (spun); WBC Urine 5-10/HPF (0-5/HPF)
[2024-09-22 16:10] LABS: Culture Indicated Urine Specimen Cultured
== END ==
PROVIDERS: Family Provider Family Medicine; PCP Family Medicine; Visit Provider Urology
DX: R31.9 Hematuria, unspecified (principal)
CPT/HCPCS: 81001; 87086

== ENCOUNTER → 2024-11-10 12:01 | Outpatient (CLI) | payer MEDICARE, OTHER, SELFPAY ==
[2020-05-11 21:28] VITALS: BMI 24.3
== END ==
PROVIDERS: Family Provider Family Medicine; PCP Family Medicine; Visit Provider Urology
DX: R31.9 Hematuria, unspecified (principal)
CPT/HCPCS: 87086

== ENCOUNTER → 2024-11-11 10:33 | Outpatient (CLI) | payer MEDICARE, OTHER, SELFPAY ==
[2020-05-11 21:28] VITALS: BMI 24.3
[2024-11-11 11:20] LABS: Estimated Glomerular Filt Rate > 60 mL/min (>60)
== END ==
PROVIDERS: Family Provider Family Medicine; PCP Family Medicine; Referring Provider Family Medicine; Visit Provider Urology
DX: R31.0 Gross hematuria (principal); R10.9 Unspecified abdominal pain; R35.1 Nocturia; Z68.25 Body mass index [BMI] 25.0-25.9, adult
CPT/HCPCS: 36415; 82565; 99213

== ENCOUNTER → 2024-11-12 10:06 | Outpatient (CLI) | payer MEDICARE, OTHER, SELFPAY ==
[2020-05-11 21:28] VITALS: BMI 24.3
--- NOTE | 2024-11-12 10:08 | DI.CT.S_ITS ---
PROCEDURE: CT IVP A/P W/WO INDICATIONS: 74 y/o M w/ right flank pain, gross hematuria TECHNIQUE: Optional 5 mm thick noncontrast images acquired from the diaphragm to the symphysis pubis. After the administration of intravenous contrast, 5 mm thick images acquired from the diaphragm to the symphysis pubis after a 10-minute delay. 2 mm thick coronal and sagittal reformats were then performed of the kidneys and ureters. For radiation dose reduction, the following was used: automated exposure control, adjustment of mA and/or kV according to patient size. COMPARISON: None. FINDINGS: Image quality: Diagnostic. Right kidney: Moderate hydronephrosis. Small nonobstructing stones. Extrarenal pelvis. Right ureter: Dilated to the level of just above the acetabuli, where there is an obstructing stone measuring 6 x 9 mm with a Hounsfield measurement of 1106.5. No mass. Left kidney: Vascular calcifications. No stones. No masses. No hydronephrosis. Left ureter: Unremarkable Bladder: Bladder wall thickening consistent with bladder outlet obstruction. No bladder mass. Extrinsic compression on the base of the bladder by an enlarged prostate. OTHER: Lower chest: Mild cardiomegaly. Severe coronary artery calcifications.. Liver: No solid mass. Gallbladder: No radiopaque gallstones or wall thickening. Biliary ducts: No biliary dilation. Pancreas: No ductal dilation. Spleen: Size is within normal limits. Adrenal Glands: No adrenal nodules. Stomach and Bowel: Normal colonic caliber, without significant wall thickening. Mild diverticulosis. Peritoneum: No abnormal intraperitoneal fluid. No free air. Ventral Wall: No hernia. Abdominal Nodes: No retroperitoneal or mesenteric adenopathy by size criteria. Vessels: Aorta and inferior vena cava are normal in size. Advanced atherosclerotic calcifications. Hemodynamically significant stenotic disease involving the left common iliac and distal external iliac artery. Probable hemodynamically significant right iliac stenotic disease as well. PELVIS: Pelvic Organs: Moderate to severe prostatomegaly.. Pelvic Nodes: No enlarged lymph nodes. Miscellaneous: No inguinal hernias are seen. Bones: No aggressive osseous abnormality. IMPRESSION: 1. A 9 mm maximum diameter stone obstructs the right ureter at the level of the right acetabulum resulting in moderate hydroureter and hydronephrosis. 2. Nonobstructing right renal stones. 3. Mild cardiomegaly, severe coronary artery calcifications. 4. Peripheral vascular disease with significant bilateral flow-limiting iliac stenoses. Dictated by: Joao Kwon M.D. on 11/12/2024 at 11:56 Approved by: Joao Kwon M.D. on 11/12/2024 at 12:02
== END ==
PROVIDERS: Family Provider Family Medicine; PCP Family Medicine; Referring Provider Urology; Visit Provider Urology
DX: R10.9 Unspecified abdominal pain (principal); R31.0 Gross hematuria; N13.2 Hydronephrosis with renal and ureteral calculous obstruction; I51.7 Cardiomegaly; I25.10 Atherosclerotic heart disease of native coronary artery without angina pectoris; I73.9 Peripheral vascular disease, unspecified
CPT/HCPCS: 74178; Q9967

== ENCOUNTER → 2024-11-19 12:53 | Outpatient (CLI) | payer MEDICARE, OTHER, SELFPAY ==
[2020-05-11 21:28] VITALS: BMI 24.3
== END ==
PROVIDERS: Family Provider Family Medicine; PCP Family Medicine; Visit Provider Urology
DX: R31.0 Gross hematuria (principal)
CPT/HCPCS: 87086

== ENCOUNTER 2024-11-26 07:46 | Day surgery (SDC) | payer MEDICARE, OTHER, SELFPAY ==
[2020-05-11 21:28] VITALS: BMI 24.3
[2024-11-24 08:49] VITALS: BMI 24.3
[2024-11-26] VITALS (8 sets, daily range): BP systolic 129–173; BP diastolic 45–91; PULSE 52–525; RESP 12–96; TEMP 36.1–36.8; O2SAT 93–98; BMI 24.1
--- NOTE | 2024-11-26 | DI.RAD.S_ITS ---
PROCEDURE: XR ABDOMEN 1V INDICATIONS: RT STETN PLACEMENT WITH LASER TECHNIQUE: 2 intra-operative images acquired by the Urology service. COMPARISON: None. FINDINGS: Intraoperative fluoroscopic images shows contrast opacification of distended right renal collecting system. There is placement of a right-sided ureteral stent. IMPRESSION: Fluoro guidance was provided intraoperatively for right-sided ureteral stent placement performed by ordering physician. Dictated by: Mikel Zavala M.D. on 11/28/2024 at 1:22 Approved by: Mikel Zavala M.D. on 11/28/2024 at 1:23
[2024-11-26] MEDS: LACTATED RINGERS 1,000 ML 42 ML IV (08:21)
[2024-11-26] MEDS: FAMOTIDINE 20 MG/2 ML VIAL IV (08:22)
--- NOTE | 2024-11-26 09:27 | PM.PREOP ---
Pre-operative Note COVID-19 COVID-19 status: Not tested Interval Note History & Physical reviewed/Exam performed by Physician: Yes Changes to H&P: No
[2024-11-26] MEDS: levoFLOXacin 500 MG/100 ML PIGGYBACK 100 MG IV (09:40)
--- NOTE | 2024-11-26 09:57 | SUR.OPER ---
Lithotomy on padded OR bed, head on pillow, arms secured on padded arm boards at <90 degrees abduction. Legs secured in padded yellow fins stirrups.
[2024-11-26] MEDS: iopamidoL 30 ML VIAL 10 ML INTRAURETH (10:16)
--- NOTE | 2024-11-26 10:37 | SUR.OPER ---
LASER NOTE 200UM .50 TIME .63KJ 12.5W
[2024-11-26] MEDS: OXYCODONE IR 5 MG TABLET PO (10:43)
--- NOTE | 2024-11-26 10:53 | PM.OP.1 ---
Operative Date/Time/Diagnoses Date of procedure: 11/26/24 Time of procedure: 09:45 Pre-op diagnosis: Right ureteral stone, right nephrolithiasis Post-op diagnosis: same Procedure & Clinicians Procedure: Cystoscopy Right retrograde ureteropyelogram Right ureteroscopy, laser lithotripsy Right ureteral stent placement Intraoperative interpretation of fluoroscopic images, total time < 1 hour Same procedure as scheduled: Yes Indications: 74 y/o M noted to have a 9mm obstructing right mid ureterolith with resultant upstream moderate hydroureteronephrosis. Discussed treatment options to include continued medical expulsion therapy vs cystoscopy, ureteroscopy, laser lithotripsy with ureteral stent placement. Discussed risks of the procedure to include but not limited to pain, bleeding, infection, injury to urethra/bladder/ureter, inability to access the ureter requiring discussion with Interventional Radiology regarding a possible ureteral stent placement in an antegrade fashion vs a possible nephroureteral stent and/or percutaneous nephrostomy tube, urinary tract infection, inability to remove all of the stone in one setting, need for emergent open repair of bladder and/or ureter, need for multiple ureteroscopic interventions necessary to render the patient stone free. Surgeon: Chi Simms Click Yes if Unassisted: Yes Anesthesia Type: General Operative Notes Findings: Very large right ureteral stone stuck at right ureteral orifice, large right lower pole calculus Closure Type: not applicable Specimen(s): other (right ureteral stone) Applied: none Estimated Blood Loss (mL): 2 Blood products transfused: none Procedure in detail: Procedures: 1) Cystoscopy 2) Right retrograde ureteropyelogram 3) Right ureteroscopy, laser lithotripsy 4) Right ureteral stent placement 5) Intraoperative interpretation of fluoroscopic images, < 1 hour, all images saved to PACS Indication: Patient was identified in the preoperative holding area and consent confirmed. He was then brought to the operating room where general anesthesia was induced.? He was placed in the low lithotomy position. He was then prepped and draped in the usual sterile fashion. A surgical timeout was conducted and all were in agreement. ?Access to the bladder was obtained via a 30 degree cystoscope.? Complete cystoscopy was then performed and no concerning bladder masses or lesions were appreciated.? Bilateral ureteral orifices were easily identified and noted to be orthotopic in nature.? A very large stone was noted to be from his right ureteral orifice. A 200 micron laser fiber was utilized for laser lithotripsy, all stone fragments were manually evacuated from his bladder. The right ureteral orifice was then easily cannulated using a 5Fr ureteral catheter over a 0.035 sensor tip ureteral guidewire. The guidewire was advanced into the right renal pelvis and the ureteral catheter and cystoscope were removed. A 12/14Fr ureteral access sheath was then advanced over the ureteral guidewire and into the proximal right ureter.? The ureteral guidewire and inner obturator were then removed.? The flexible ureteroscope was then advanced through the ureteral access sheath and into the right renal collecting system. Complete pyeloscopy was then performed and a large calculus was noted in the right lower pole calyx.? Laser lithotripsy was then performed utilizing the 200 micron laser fiber.? All stone fragments >1mm in size were removed via the stone basket and sent for chemical analysis.? A retrograde pyelogram was then performed which noted no filling defects concerning for residual stone.? The ureteral guidewire was then readvanced through the ureteroscope and into the right renal pelvis.? The ureter was then directly visualized upon removal of the ureteroscope and ureteral access sheath and noted to be stone free.? The cystoscope was then backloaded over the ureteral guidewire and advanced into the bladder.? A 7Fr multi-length JJ ureteral stent with strings was then advanced over the ureteral guidewire.? Upon removal of the guidewire, a good curl was noted within the right renal pelvis upon fluoroscopy and visually within the bladder.? The bladder was then drained and the cystoscope was removed.? Anesthesia was reversed, he was extubated in the OR and transferred to the PACU in stable condition for recovery. Complications: none Post-operative Condition: stable Disposition: PACU Plan for aftercare: Discharge home from PACU. Will return to Urology clinic in 3 months to discuss the results of his RBUS and stone analysis.
[2024-11-26] MEDS: PHENAZOPYRIDINE 100 MG TABLET 200 MG PO (11:18)
== END 2024-11-26 11:34 | disposition home or self-care (01) ==
PROVIDERS: Family Provider Family Medicine; PCP Family Medicine; Referring Provider Urology; Visit Provider Urology
PROC: (CPT 52356; principal; 2024-11-26 09:30)
DX: N20.1 Calculus of ureter (principal); N13.30 Unspecified hydronephrosis; R35.1 Nocturia
CPT/HCPCS: 52356; 74018; 74420; 76000; 82365; 82962; C2617; J1100; J1956; J2405; J2704; J3010; J3490; Q9967

== ENCOUNTER 2024-12-03 09:22 | Emergency (ER) | payer MEDICARE, OTHER, SELFPAY ==
[2020-05-11 21:28] VITALS: BMI 24.3
[2024-12-03 09:23] VITALS: BP 214/86; PULSE 54; RESP 14; TEMP 36.4; O2SAT 100; BMI 24.1
[2024-12-03 09:26] VITALS: PULSE 51; O2SAT 100
[2024-12-03 09:28] VITALS: BP 197/81
[2024-12-03 09:30] VITALS: BP 193/91
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
[2024-12-03 11:35] LABS: Appearance Urine UA CLEAR; Bilirubin Urine UA NEGATIVE (NEGATIVE); Color Urine UA YELLOW; Glucose Urine UA NEGATIVE (Negative); Ketones Urine UA NEGATIVE (NEGATIVE); Leukocyte Esterase Urine UA 2+ (NEGATIVE); Nitrite Urine UA NEGATIVE (Negative); Occult Blood Urine UA 3+ (Negative); Protein Urine UA 3+ (Negative)
[2024-12-03 11:42] VITALS: BP 193/81; PULSE 55; RESP 18; TEMP 36.6; O2SAT 97
[2024-12-03 11:43] LABS: Bacteria Urine Few (2-10); RBC Urine 30-100/HPF (0-5/HPF); Squamous Epithelial Cell Urine 1-5 /HPF (0-5/HPF); Urine Volume 10mL (spun); WBC Urine 5-10/HPF (0-5/HPF)
[2024-12-03 11:44] LABS: Culture Indicated Urine Specimen Cultured
== END 2024-12-03 11:45 | disposition home or self-care (01) ==
PROVIDERS: Emergency Provider Family Medicine; Family Provider Family Medicine; PCP Family Medicine
DX: M54.50 Low back pain, unspecified (principal); W18.30XA Fall on same level, unspecified, initial encounter; Z96.0 Presence of urogenital implants
CPT/HCPCS: 72131; 81003; 81015; 87086; 99282; 99284

== ENCOUNTER → 2024-12-06 08:28 | Outpatient (CLI) | payer MEDICARE, OTHER, SELFPAY ==
[2020-05-11 21:28] VITALS: BMI 24.3
== END ==
PROVIDERS: PCP Family Medicine; Visit Provider Urology
DX: R39.9 Unspecified symptoms and signs involving the genitourinary system (principal); R31.0 Gross hematuria; R35.1 Nocturia
CPT/HCPCS: 87086

== ENCOUNTER → 2025-02-18 08:33 | Outpatient (CLI) | payer MEDICARE, OTHER, SELFPAY ==
[2020-05-11 21:28] VITALS: BMI 24.3
--- NOTE | 2025-02-18 08:35 | DI.US.S_ITS ---
PROCEDURE: US RENAL COMPLETE INDICATIONS: Right ureteral calculus TECHNIQUE: Real-time scanning was performed of the kidneys and bladder, with image documentation. COMPARISON: None. FINDINGS: Kidneys: Kidneys are normal in size. Right kidney measures 12.4 cm long; left kidney measures 12.5 cm long. Right renal cortical thickness is 2 cm; left renal cortical thickness is 1.7 cm. Renal cortical echotexture is normal. No hydronephrosis or nephrolithiasis. No suspicious solid mass lesions. Bladder: Pre-void bladder volume is 233 mL. Post-void residual is not measured. Pre-void images demonstrate no intraluminal masses or stones. On pre-void images, bilateral ureteral jets are noted with color Doppler interrogation. (Of note, ureteral jets may not be detectable in up to 25% of cases due to insufficient differences in specific gravity between ureteral and bladder urine). Miscellaneous: No free pelvic fluid. IMPRESSION: Unremarkable ultrasound examination of bilateral kidneys and urinary bladder. Dictated by: Mikel Zavala M.D. on 02/18/2025 at 13:34 Approved by: Mikel Zavala M.D. on 02/18/2025 at 13:40
== END ==
LOC: US 08:34
PROVIDERS: PCP Family Medicine; Referring Provider Family Medicine; Visit Provider Urology
DX: N20.1 Calculus of ureter (principal); Z87.442 Personal history of urinary calculi
CPT/HCPCS: 76770